=== PATIENT | female | born 1985 | race Caucasian/White ===

== ENCOUNTER 2018-08-04 18:02 | Emergency (ER) | payer MEDICAID, OTHER, SELFPAY ==
[~2018-08-04] VITALS: Ht 157.5 cm; Wt 99.1 kg
[2018-08-04] MEDS ORDERED: KETOROLAC 30 MG/ML VIAL (J1885) IV ONE (19:30)
[2018-08-04] MEDS ORDERED: NS 1,000 ML IV ONE (19:30)
[2018-08-04 19:43] LABS: HEMATOCRIT 34.7 % (36.0-47.0); HEMOGLOBIN 12.7 g/dl (12.0-15.5); MEAN CORPUSCULAR HEMOGLOBIN 31.3 pg (27.0-33.0); MEAN CORPUSCULAR VOLUME 85.5 fl (80.0-96.0); PLATELET COUNT, AUTOMATED 131 10^3/uL (150-450); RED BLOOD COUNT 4.06 10^6/uL (4.00-5.40); WHITE BLOOD COUNT 10.3 10^3/uL (4.0-10.0)
[2018-08-04 19:47] LABS: MEAN CORPUSCULAR HGB CONC 36.4 g/dl (32.0-36.5)
[2018-08-04 20:00] LABS: HEMOGLOBIN A1c 7.1 %
[2018-08-04 20:08] LABS: BLOOD UREA NITROGEN 11 MG/DL (7-18); C REACTIVE PROTEIN QUANTITATIV 5.03 MG/DL (0.00-0.30); CALCIUM LEVEL 7.7 MG/DL (8.5-10.1); CARBON DIOXIDE LEVEL 29 MEQ/L (21-32); CHLORIDE LEVEL 89 MEQ/L (98-107); CREATININE FOR GFR 0.82 MG/DL (0.55-1.30); GLOMERULAR FILTRATION RATE > 60.0 (>60); GLUCOSE, FASTING 174 MG/DL (70-100); SODIUM LEVEL 125 MEQ/L (136-145)
[2018-08-04 20:13] LABS: ATYPICAL LYMPH 7 % (0-5); BASOPHILS 1 % (0-4); LYMPHOCYTES 15 % (16-52); MONOCYTES 1 % (0-8); NEUTROPHILS 76 % (35-75)
[2018-08-04 20:17] LABS: SMUDGE CELLS 1+; TOXIC GRANULATION 2+; TOXIC VACUOLATION 1+
[2018-08-04 20:18] LABS: PLATELET ESTIMATE DECREASED (NORMAL)
[2018-08-04] MEDS ORDERED: ISOVUE-370 76% 100ML VIAL (Q9967) As Ordered ONE (20:46)
--- NOTE | 2018-08-04 21:16 | REP ---
Clinical: Left chest wall abscess. Technique: Axial contrast enhanced images from the thoracic inlet to the upper abdomen with coronal and sagittal re-formations using 100 ml Isovue 370 intravenous contrast material. Findings: There is an irregular predominantly gas containing lesion in the left axillary space which appears to extend to the skin surface and measures approximately 9.0 x 4.5 cm maximal AP and transverse diameter (series 206; images 25-42). Lesion should be correlated with physical examination. No significant drainable fluid is identified and this may be secondary to its apparent extension through the skin surface. Moderate surrounding inflammatory change to the subcutaneous fat noted. The musculature and osseous structures are intact, unaffected and normal. Further evaluation of the chest demonstrates the bilateral lung smith to be well-aerated, symmetric and clear. No consolidation, pleural effusion or pneumothorax. No significant nodule or mass lesion. Tracheobronchial tree is patent. No significant adenopathy. Mediastinum demonstrates normal thoracic aorta, pulmonary vasculature, and heart/pericardium. Impression: 1. Predominate gas-filled abscess in the left axillary space extends through the skin surface and is without drainable fluid. The musculature and osseous structures in the vicinity of the left axillary space as well as the vasculature appear intact, normal and unaffected. 2. No acute mediastinal or pleuroparenchymal process appreciated. Electronically Signed by Eleno Whyte MD 08/04/2018 09:07 P
[2018-08-04] MEDS ORDERED: CLEO300C2 PO (21:41)
[2018-08-04] MEDS ORDERED: METF500T13 PO (21:41)
[2018-08-04] MEDS ORDERED: CLINDAMYCIN 900 MG in APPROPRIATE DILUENT 1 EA IV ONE (21:45)
[2018-08-04 23:43] VITALS: BP 126/71
[2018-08-05] MEDS ORDERED: METF500T13 PO (23:54)
[2018-08-05] MEDS ORDERED: VENTAER INH (23:54)
[2018-08-05] MEDS ORDERED: CLEO300C2 PO (23:54)
[2018-08-05] MEDS ORDERED: IBUPOTC PO (23:54)
== END 2018-08-04 23:51 | disposition left against medical advice (07) ==
LOC: M ED 18:02
DX: L02.412 Cutaneous abscess of left axilla (principal); E11.65 Type 2 diabetes mellitus with hyperglycemia; F17.210 Nicotine dependence, cigarettes, uncomplicated
CPT/HCPCS: 36415; 71260; 80048; 83036; 85025; 86140; 87040; 87070; 87077; 87186; 96361; 96365; 96375; 99284; J1885; Q9967

== ENCOUNTER 2018-08-05 18:32 | Inpatient (IN) | payer MEDICAID, SELFPAY ==
[~2018-08-05] VITALS: Ht 157.5 cm; Wt 99.5 kg
[2018-08-05] MEDS: POTASSIUM CHLORIDE 10 MEQ SR TABLET PO SCH (01:00)
[~2018-08-05 18:32] MED LIST: CLEO300C2 PO; METF500T13 PO
[2018-08-05] MEDS ORDERED: MORPHINE 4 MG/ML 1ML VIAL/SYRINGE (J2270) IV ONE (20:30)
[2018-08-05] MEDS ORDERED: NS 1,000 ML IV ONE ×2 (20:30→22:30)
[2018-08-05 21:41] LABS: HCG, SERUM QUALITATIVE NEGATIVE (NEGATIVE)
[2018-08-05 21:44] LABS: ERYTHROCYTE SEDIMENTATION RATE 70 mm/hr (0-20)
[2018-08-05 21:49] LABS: HEMATOCRIT 30.6 % (36.0-47.0); MEAN CORPUSCULAR HEMOGLOBIN 30.1 pg (27.0-33.0); MEAN CORPUSCULAR HGB CONC 35.9 g/dl (32.0-36.5); MEAN CORPUSCULAR VOLUME 83.6 fl (80.0-96.0); PLATELET COUNT, AUTOMATED 149 10^3/uL (150-450); RED BLOOD COUNT 3.66 10^6/uL (4.00-5.40); WHITE BLOOD COUNT 8.2 10^3/uL (4.0-10.0)
[2018-08-05 21:59] LABS: ALBUMIN 1.9 GM/DL (3.2-5.2); ALT/SGPT 37 U/L (12-78); BILIRUBIN,DIRECT 0.2 MG/DL (0.0-0.2); BILIRUBIN,TOTAL 0.4 MG/DL (0.2-1.0); BLOOD UREA NITROGEN 9 MG/DL (7-18); C REACTIVE PROTEIN QUANTITATIV 4.46 MG/DL (0.00-0.30); CALCIUM LEVEL 7.5 MG/DL (8.5-10.1); CARBON DIOXIDE LEVEL 29 MEQ/L (21-32); CHLORIDE LEVEL 92 MEQ/L (98-107); CREATININE FOR GFR 0.63 MG/DL (0.55-1.30); GLOMERULAR FILTRATION RATE > 60.0 (>60); GLUCOSE, FASTING 158 MG/DL (70-100); POTASSIUM SERUM 2.7 MEQ/L (3.5-5.1); SODIUM LEVEL 129 MEQ/L (136-145); TOTAL PROTEIN 5.6 GM/DL (6.4-8.2)
[2018-08-05 22:14] LABS: ATYPICAL LYMPH 10 % (0-5); BASOPHILS 1 % (0-4); LYMPHOCYTES 26 % (16-52); MONOCYTES 3 % (0-8); NEUTROPHILS 58 % (35-75); TOXIC VACUOLATION 1+
[2018-08-05 22:15] LABS: PLATELET ESTIMATE NORMAL (NORMAL); TOXIC GRANULATION 1+
[2018-08-05] MEDS ORDERED: AMPICILLIN SOD/SULBACTAM SOD 1.5 GM in D5W MINI-BAG PLUS 50 ML IV ONE (22:15)
[2018-08-05] MEDS ORDERED: KCL 20MEQ IN 100ML SWI (KRUN) 20 MEQ in APPROPRIATE DILUENT 1 EA IV ONE ×2 (22:30)
--- NOTE | 2018-08-05 22:35 | REPVR ---
EXAM: US Left Non-Vascular Joint or Other Extremity Structure, Limited Upper Extremity EXAM DATE/TIME: 08/05/2018 10:00 PM CLINICAL HISTORY: 32 years old, female; Signs and symptoms; Swelling and other: Pain, drainage; Arm, upper; Left; Additional info: L axilla, abscess TECHNIQUE: Left US Non-Vascular Joint or Other Extremity Structure. Limited exam of the upper extremity. COMPARISON: No relevant prior studies available. FINDINGS: Limited evaluation of the left axilla demonstrates complex area with small collection measuring 1.6 x 1.0 x 2.3 cm likely an abscess formation with surrounding edema. Findings are consistent with patient's given history of an abscess formation. IMPRESSION: Limited evaluation of the left axilla demonstrates complex area with small collection measuring 1.6 x 1.0 x 2.3 cm likely an abscess formation with surrounding edema. Findings are consistent with patient's given history of an abscess formation. Electronically signed by: Denita Rivera On 08/05/2018 22:35:21 PM
[2018-08-05] MEDS ORDERED: KCL 10MEQ/100ML SWI (KRUN) 10 MEQ in APPROPRIATE DILUENT 1 EA IV ONE ×4 (22:45)
[2018-08-05] MEDS ORDERED: GLUCOSE 4 GM CHEW TABLET PO PRN (23:45)
[2018-08-05] MEDS: NS 1,000 ML IV SCH (23:45)
[2018-08-05] MEDS ORDERED: ONDANSETRON 4MG/2ML VIAL (J2405) IV PRN (23:45)
[2018-08-05] MEDS ORDERED: DEXTROSE 50% 50 ML SYRINGE IV PRN (23:45)
[2018-08-05] MEDS ORDERED: GLUCAGON FOR INJ 1 MG VIAL (J1610) SC PRN (23:45)
[2018-08-05] MEDS ORDERED: METF500T13 PO (23:54)
[2018-08-05] MEDS ORDERED: VENTAER INH (23:54)
[2018-08-05] MEDS ORDERED: CLEO300C2 PO (23:54)
[2018-08-05] MEDS ORDERED: IBUPOTC PO (23:54)
[2018-08-06] MEDS ORDERED: VANCOMYCIN HCL 1,000 MG, VIAL MATE ADAPTER 1 EACH in D5W 250 ML IV STA (00:15)
[2018-08-06 00:18] LABS: CHOLESTEROL LEVEL 60 MG/DL (<200); CHOLESTEROL RISK RATIO 6.666 (<5); HDL CHOLESTEROL 9 MG/DL (>40); LDL CHOLESTEROL -19 MG/DL (<100); NON-HDL-C 51 MG/DL; TRIGLYCERIDES LEVEL 352 MG/DL (<150)
[2018-08-06] MEDS: POTASSIUM CHLORIDE 10 MEQ SR TABLET PO SCH ×3 (00:19→01:00)
[2018-08-06] MEDS: IPRATROPIUM 0.5MG/ALBUTEROL 2.5MG INH SOL UD 3ML (DUONEB)(J7620) NEB SCH ×4 (00:21→21:03)
[2018-08-06] MEDS ORDERED: metroNIDAZOLE 500 MG in APPROPRIATE DILUENT 1 EA IV SCH ×2 (02:00→06:00)
[2018-08-06] MEDS: MORPHINE 4 MG/ML 1ML VIAL/SYRINGE (J2270) IV PRN (02:16)
--- NOTE | 2018-08-06 02:48 | PHACANCOPD ---
PHARMACY VANCOMYCIN DOSING Pt Demographics Demographics Patient Age:32 , Weight:99.550 , Gender: female Adjusted Body Weight Date: 08/06/18, Adjusted Body Weight: Kg Events Past 24 Hours Events Past 24 Hours: NO: Dialysis, Diuretic Therapy, Change in CrCl, Fever, Elevation in WBC, Pending Diagnostics, Pending Procedures, Other Vancomycin Vancomycin Target Ranges: 15-20 mcg/ml Vancomycin Load Y/N: Yes Load Dose Date Time Vancomycin Load Dose: 2000MG Date: 08-06 Time: 040 Vancomycin Dose Date: 08/06/18. Current Vancomycin Dose: [1000mg q8h] Intermittent Dosing?: No Labs Labs Item Value Date Time White Blood Count 8.2 10^3/uL 08/05/182052 Glomerular Filtration Rate > 60.0 08/05/182052 Creatinine 0.63 MG/DL 08/05/182052 Blood Urea Nitrogen 9 MG/DL 08/05/182052 Vital Signs Label Value Date Time Patient Temperature 100.3 degrees F 08/05/182102 Micro Microbiology 08/05/18 Blood Culture, Received Pending 08/05/18 Blood Culture, Received Pending 08/05/18 Gram Stain, Received Pending 08/05/18 Wound Culture, Received Pending Creatinine Clearance Date:08/06/18. Creatinine Clearance: [~100]. Pending Labs Trough 03-02 @1100 Assessment and Plan Maintaining Current Dose?: Yes Reason for dose change: No Dose Change Pharmacist Note Pharmacist Note Date: 08/06/18. Pharmacist note:Will monitor and make adjustments as needed. GAYATRI KAUR PHARMACY Aug 06, 2018 02:48
[2018-08-06] MEDS ORDERED: VANCOMYCIN HCL 1,000 MG, VIAL MATE ADAPTER 1 EACH in D5W 250 ML IV SCH (04:00)
[2018-08-06] MEDS: HEPARIN SOD (PORCINE) 5000 UNITS/ML VIAL SC SCH ×3 (05:47→21:51)
[2018-08-06] MEDS: HumaLOG INSULIN (NovoLOG) PER UNIT SC SCH ×3 (07:30→17:30)
[2018-08-06] MEDS ORDERED: AMPICILLIN SOD/SULBACTAM SOD 3 GM in D5W MINI-BAG PLUS 100 ML IV ONE (07:45)
[2018-08-06 07:52] LABS: INR 1.07
[2018-08-06 07:53] LABS: PARTIAL THROMBOPLASTIN TIME 31.2 SECONDS (25.4-37.6)
[2018-08-06 07:59] LABS: BLOOD UREA NITROGEN 7 MG/DL (7-18); CALCIUM LEVEL 6.9 MG/DL (8.5-10.1); CARBON DIOXIDE LEVEL 28 MEQ/L (21-32); CHLORIDE LEVEL 99 MEQ/L (98-107); GLOMERULAR FILTRATION RATE > 60.0 (>60); GLUCOSE, FASTING 96 MG/DL (70-100); POTASSIUM SERUM 3.3 MEQ/L (3.5-5.1); SODIUM LEVEL 133 MEQ/L (136-145)
[2018-08-06] MEDS ORDERED: cefTRIAXone SOD 1 GM in D5W MINI-BAG PLUS 50 ML IV SCH (08:00)
[2018-08-06 08:21] LABS: C REACTIVE PROTEIN QUANTITATIV 3.76 MG/DL (0.00-0.30); MAGNESIUM LEVEL 2.1 MG/DL (1.8-2.4)
[2018-08-06 08:24] LABS: HEMOGLOBIN 10.3 g/dl (12.0-15.5); MEAN CORPUSCULAR HEMOGLOBIN 30.4 pg (27.0-33.0); MEAN CORPUSCULAR VOLUME 88.5 fl (80.0-96.0); PLATELET COUNT, AUTOMATED 162 10^3/uL (150-450); RED BLOOD COUNT 3.39 10^6/uL (4.00-5.40); WHITE BLOOD COUNT 7.1 10^3/uL (4.0-10.0)
[2018-08-06 08:26] LABS: MEAN CORPUSCULAR HGB CONC 34.3 g/dl (32.0-36.5)
[2018-08-06] MEDS ORDERED: POTASSIUM CHLORIDE 10 MEQ SR TABLET PO ONE (09:45)
[2018-08-06] MEDS: VANCOMYCIN HCL 1,000 MG, VIAL MATE ADAPTER 1 EACH in D5W 250 ML IV SCH ×3 (10:27→23:59)
[2018-08-06] MEDS: MULTIVITAMINS/MINERALS THERAP 1 TAB PO SCH (10:27)
[2018-08-06] MEDS: THIAMINE 100 MG TAB PO SCH (10:28)
[2018-08-06] MEDS: FOLIC ACID 1 MG TAB PO SCH (10:30)
--- NOTE | 2018-08-06 10:32 | REP ---
Clinical: Abnormal liver function tests. History of left axillary abscess Technique: Rodríguez scale ultrasound using curved array transducer. Findings: The liver is increased echogenicity with poor through transmission suggesting fatty infiltration. No focal hepatic lesion identified. Liver is mildly enlarged measuring 18.1 cm craniocaudal length. The pancreas is incompletely evaluated due to interposed bowel gas but visualized portions appear normal. The gallbladder is normal without gallstones, wall thickening or pericholecystic fluid. No biliary ductal dilatation is appreciated, and the common bile duct measures 4.7 mm diameter. The right kidney is normal in reniform shape without hydronephrosis and measures 13.6 x 6.2 x 5.7 cm. No ascites. Visualized portions of the abdominal aorta normal. Impression: 1. Hepatosteatosis and mild hepatomegaly without focal hepatic lesion. Electronically Signed by Eleno Whyte MD 08/06/2018 10:23 A
[2018-08-06] MEDS: NS 1,000 ML IV SCH ×2 (13:45→20:24)
[2018-08-06] MEDS: AMPICILLIN SOD/SULBACTAM SOD 3 GM in D5W MINI-BAG PLUS 100 ML IV SCH ×2 (13:45→20:24)
[2018-08-06 14:00] VITALS: BP 144/73
--- NOTE | 2018-08-06 15:04 | HPE ---
DATE OF ADMISSION: 08/05/2018 CHIEF COMPLAINT: Pain, swelling, drainage from the left axilla over the past several days. HISTORY OF PRESENT ILLNESS: The patient is a 32-year-old female. She has a significant past medical history of chronic obstructive pulmonary disease (COPD), current tobacco abuse, down to 2-3 cigarettes per day, recently diagnosed with diabetes from an emergency department visit 08/04/2018. Noted some swelling, induration, pain in the left axilla that has progressively worsened over the last several days. Patient presented to the emergency room yesterday which noted she had a 9 cm abscess in the left axillary area 9 x 4.5 cm. Patient was advised for admission. She decided to sign out against medical advise. Three times a day with draining of the abscess. Ultrasound showed limited evaluation. She denies fevers or chills. She denies cough, chest pain, shortness of breath, urinary symptoms. She endorses nausea but no vomiting. PAST MEDICAL HISTORY: See history of present illness. PAST SURGICAL HISTORY: Tubal ligation. ALLERGIES: No known drug allergies. HOME MEDICATIONS: Patient was recently started on metformin which she has not recently started. - albuterol as needed SOCIAL HISTORY: She is a current smoker. Denies alcohol or elicit drug use. FAMILY HISTORY: Noncontributory. REVIEW OF SYSTEMS: 12 point review of system was completed all of which are negative except those listed in the history of present illness. VITAL SIGNS ON ADMISSION: Temperature 98, pulse 137, blood pressure 133/82, sating at 92% on room air. PHYSICAL EXAMINATION: General: Well nourished, in no apparent distress. Head is normocephalic, atraumatic. Eyes: Extraocular movements are intact. Pupils equal, round, and reactive to light. Neck is supple. No jugular venous pulse. Lungs: Mild wheezing. No crackles. Cardiovascular: Regular rate and rhythm. Normal S1, S2. No murmurs, gallops or rubs. Abdomen is soft, nontender, nondistended. Positive bowel sounds. No rebound or guarding. Extremities: No pitting edema or calf tenderness. Skin shows induration, draining abscess in the left axilla with mild area of erythema, foul smelling. LABS AND IMAGING DONE IN THE ER: White count of 8, hemoglobin and hematocrit of 11/30, platelet count of 149. Chemistry shows a sodium of 129, chloride of 92, potassium of 2.7, lactate of 2.3. Ultrasound of the left extremity shows limited 1.6 x 1 x 2.3 cm abscess with surrounding edema. ASSESSMENT AND PLAN: Sepsis secondary to axillary abscess which is draining on its own. Will repeat CT in the a.m. to assess for the dimensions. Will do vancomycin, ceftriaxone and Flagyl. Blood cultures, wound cultures in the emergency department. Tylenol as needed. Morphine as needed pain. IV fluids. Will trend lactose until it normalizes. Hypokalemia likely secondary to decreased intake. Will replenish. Will keep her on telemetry. Will recheck potassium in the a.m. Chronic obstructive pulmonary disease (COPD) with mild exacerbation on DuoNeb standing. Recently diagnosed diabetes. A1c of 7.1. Insulin sliding scale. Supportive deep venous thrombosis (DVT) prophylaxis. Heparin subcutaneous. Gastroesophageal (GI) prophylaxis not indicated. Thrombocytopenia unclear etiology. The patient denies any history of alcohol abuse. She does have an albumin of 1.9. AST and ALT are within normal limits as are total bilirubin and alkaline phosphatase. However with a low albumin, we will get a coagulation value for synthetic function of the liver. Will send lipid panel as well. Patient may have a HUSSEIN. Will get an ultrasound of the right upper quadrant to assess for liver parenchyma. Supportive deep venous thrombosis (DVT) prophylaxis. Heparin subcutaneous. Gastroesophageal (GI) prophylaxis not indicated. DIET: Cardiac, diabetic.
--- NOTE | 2018-08-06 15:20 | CR ---
DATE OF CONSULTATION: 08/06/2018 REASON FOR CONSULTATION: Left axillary abscess. HISTORY OF PRESENT ILLNESS: The patient is 32-year-old female, who presents with an abscess on her left axilla she has had for about 2 weeks. She has had previous abscesses under the left that were very small like little pimples she has taken care of by yourself with just warm compresses but never had any large abscesses like this in the past. She was hoping that this one would go away like the others did, so she has been keeping it clean, using a handheld shower head to keep the left axilla washed. She has been keeping it covered with dressings and putting bacitracin on I. She has not had any other drainage procedures or antibiotics used for it. It has been getting progressively worse, continuing to drain the entire time, so she finally came into the emergency room (ER) for evaluation. In the ER, she had no fevers, normal labs, and therefore, she was admitted to the medicine service due to the large abscess that was actively draining and I was asked to evaluate. Currently, she has significant swelling and pain there; however, she denies any other complaints. No fevers or chills. No nausea or vomiting. No problems with any abscesses anywhere else on her body. PAST MEDICAL HISTORY: 1. Diabetes. 2. Asthma. PAST SURGICAL HISTORY: Tubal ligation. ALLERGIES: NONE. HOME MEDICATIONS: - metformin - albuterol SOCIAL HISTORY: Smokes. Denies any drug or alcohol abuse. FAMILY HISTORY: Noncontributory. REVIEW OF SYSTEMS: Pertinent positives and negatives as stated in the history of present illness (HPI). PHYSICAL EXAMINATION: General: Alert and oriented times three, in no acute distress. Vital signs: Temperature 99.9, pulse 99, respirations 20, blood pressure 120/69, pulse oximetry 94% on 2 liters nasal cannula. HEENT: Pupils equally round and react to light and accommodation. Heart: S1, S2, regular rate and rhythm. Lungs: Clear to auscultation bilaterally. Abdomen: Soft, nontender, nondistended. Skin: Under the left axilla there is significant inflammation and swelling. No signs of any palpable fluctuance or fluid collections. There is two 1-1.5 cm openings in the posterior left axilla. They are actively draining very foul-smelling, brownish purulent fluid. No other signs of any abscess or fluid collections. LABS: White count 7.1. Hemoglobin 10.3. Platelets 162. Potassium 3.3. Creatinine 0.5. Lactic acid 1.7. IMAGING: Ultrasound of the left axilla shows complex area a small collection measuring 1.6 x 1 x 2.3 cm likely an abscess formation with surrounding edema. ASSESSMENT AND PLAN: The patient is a 32-year-old female with left axillary abscess that is actively draining on its own. Recommend keeping it clean. Right now she has got pus all over her. The entire left side of her body is covered and draining pus. I recommend a good shower with a handheld shower head to get the area as clean as possible. If the nurses can flush the inside of the wound a little bit with some saline even to try to help expel some of the fluid that is actively draining and then she needs a good absorbent gauze dressing placed on their. If she continues to drain copious amounts of fluid, then she will need multiple dressing changes a day. Otherwise, the antibiotics will likely help to take care the rest of this. Otherwise, at this point, there are no signs of any need for surgical intervention just recommend good close wound care with antibiotics and I will continue to follow as needed.
[2018-08-06 18:00] VITALS: BP 125/64
[2018-08-06] MEDS: ACETAMINOPHEN TAB 650MG DOSE (2X325MG) PO PRN (18:01)
--- NOTE | 2018-08-06 19:37 | IPN ---
DATE: 08/06/2018 Patient admitted overnight with worsening drainage from left axilla abscess and wound. Denies any fever or chills, chest pain, pressure or discomfort. Denies any chest pain, pressure or discomfort. Reported foul smelling drainage from patient's left axilla and significant pain with movement. VITAL SIGNS: Temperature 99.9, pulse 105, respirations 20, blood pressure 105/62, pulse ox 97% on 2 liters. LABORATORY: WBC 7.1, hemoglobin and hematocrit 10.3/30, platelets 162. Chemistry: Sodium 133, potassium 3.3, chloride 99, bicarbonate 28, BUN 7, creatinine 0.5, lactic acid initially 2.3, currently 1.7. PHYSICAL EXAMINATION: GENERAL: Patient obese. Alert. In no acute distress. HEENT: Normocephalic, atraumatic. PULMONARY: Bilateral clear. CARDIAC: Regular S1, S2. ABDOMEN: Soft, nontender, positive bowel sounds. EXTREMITIES: No edema bilateral lower extremities. Right axilla showing two draining abscesses, tender to palpation within purulent foul smelling drainage. ASSESSMENT AND PLAN: This is a 32-year-old female patient with underlying medical history of chronic obstructive pulmonary disease (COPD), tobacco abuse, down to 2 to 3 cigarettes recently diagnosed with diabetes, poorly compliant. Initially noted with left axilla induration that has progressively worsened. Patient was seen in the emergency room yesterday, noted to have a 9 cm abscess, was advised for admission, but patient left against medical advice. Patient returned with purulent drainage from left axilla abscess. PROBLEMS: 1. Sepsis secondary to axilla abscess that is draining. Surgery on consult. Patient currently on Unasyn and vancomycin. Followup cultures. Surgery consulted. Wound care is ordered. IV fluids have been ordered. 2. Obesity complicating care. Obstructive sleep apnea (DAVID) protocol. 3. Sinus tachycardia. Likely secondary to underlying infection and sepsis. IV fluids. 4. Diabetes. Newly diagnosed. Insulin is ordered. 5. Hypokalemia. Likely secondary to poor by mouth intake. Supplementation ordered. 6. History of COPD. Nebulizer treatment. Currently does not have any wheeze. 7. Deep venous thrombosis (DVT) prophylaxis. Heparin subcutaneous. DISPOSITION: Pending clinical improvement.
[2018-08-06 22:00] VITALS: BP 123/62
[2018-08-07] MEDS: IPRATROPIUM 0.5MG/ALBUTEROL 2.5MG INH SOL UD 3ML (DUONEB)(J7620) NEB SCH ×4 (01:38→20:00)
[2018-08-07] MEDS: AMPICILLIN SOD/SULBACTAM SOD 3 GM in D5W MINI-BAG PLUS 100 ML IV SCH ×2 (02:06→09:44)
[2018-08-07] MEDS: HEPARIN SOD (PORCINE) 5000 UNITS/ML VIAL SC SCH ×3 (05:37→20:14)
[2018-08-07 06:00] VITALS: BP 126/76
[2018-08-07 07:57] LABS: HEMATOCRIT 29.7 % (36.0-47.0); HEMOGLOBIN 10.8 g/dl (12.0-15.5); MEAN CORPUSCULAR HEMOGLOBIN 33.8 pg (27.0-33.0); MEAN CORPUSCULAR HGB CONC 36.4 g/dl (32.0-36.5); MEAN CORPUSCULAR VOLUME 92.8 fl (80.0-96.0); PLATELET COUNT, AUTOMATED 178 10^3/uL (150-450); WHITE BLOOD COUNT 6.7 10^3/uL (4.0-10.0)
[2018-08-07 08:29] LABS: BLOOD UREA NITROGEN 5 MG/DL (7-18); C REACTIVE PROTEIN QUANTITATIV 4.04 MG/DL (0.00-0.30); CALCIUM LEVEL 7.3 MG/DL (8.5-10.1); CARBON DIOXIDE LEVEL 28 MEQ/L (21-32); CHLORIDE LEVEL 99 MEQ/L (98-107); CREATININE FOR GFR 0.42 MG/DL (0.55-1.30); GLOMERULAR FILTRATION RATE > 60.0 (>60); GLUCOSE, FASTING 108 MG/DL (70-100); MAGNESIUM LEVEL 1.7 MG/DL (1.8-2.4); POTASSIUM SERUM 3.3 MEQ/L (3.5-5.1); SODIUM LEVEL 134 MEQ/L (136-145)
[2018-08-07] MEDS: HumaLOG INSULIN (NovoLOG) PER UNIT SC SCH ×3 (09:43→17:48)
[2018-08-07] MEDS: FOLIC ACID 1 MG TAB PO SCH (09:50)
[2018-08-07] MEDS: MULTIVITAMINS/MINERALS THERAP 1 TAB PO SCH (09:50)
[2018-08-07] MEDS: THIAMINE 100 MG TAB PO SCH (09:51)
[2018-08-07] MEDS ORDERED: VANCOMYCIN HCL 1,000 MG, VIAL MATE ADAPTER 1 EACH in D5W 250 ML IV ONE (10:00)
--- NOTE | 2018-08-07 10:12 | ECGEPIP ---
Stationary ECG Study [facility] - ED Test Date: 2018-08-05 Pat Name: PATRICE BECERRIL Department: Room: [place] [address] Gender: F Scan Coordinator: taylor : 1985 Requested By: TJ Rutherford PA-C Order Number: [id number] Reading MD: Carmen Wilson Measurements Intervals [place] Rate: 116 P: 59 HI: 156 QRS: 20 QRSD: 102 T: 35 QT: 341 QTc: 476 Interpretive Statements SINUS TACHYCARDIA NONSPECIFIC T-WAVE ABNORMALITY ABNORMAL RHYTHM ECG LOW VOLTAGE LIMB LEADS PROLONGED QTC NO OLD ECG FOR COMPARISON Electronically Signed On 08-07-2018 10:11:40 EST by Carmen Wilson
[2018-08-07] MEDS: VANCOMYCIN HCL 1,000 MG, VIAL MATE ADAPTER 1 EACH in D5W 250 ML IV SCH ×2 (10:52→16:54)
[2018-08-07] MEDS: POTASSIUM CHLORIDE 10 MEQ SR TABLET PO SCH ×2 (10:53→20:14)
[2018-08-07] MEDS ORDERED: MAG SULF 1GM/100ML (MAG RUN) 1 GM in APPROPRIATE DILUENT 1 EA IV ONE (11:00)
[2018-08-07] MEDS: MORPHINE 4 MG/ML 1ML VIAL/SYRINGE (J2270) IV PRN ×2 (12:07→21:46)
[2018-08-07 14:00] VITALS: BP 127/74
[2018-08-07] MEDS: cefTRIAXone SOD 2 GM in D5W MINI-BAG PLUS 50 ML IV SCH (15:59)
--- NOTE | 2018-08-07 17:48 | ECGEPIP ---
Stationary ECG Study [facility] - ED Test Date: 2018-08-06 Pat Name: PATRICE BECERRIL Department: Room: [place] [address] Gender: F Shipping And Receiving Operator: NADIRA : 1985 Requested By: MAINE MARIEE Order Number: [id number] Reading MD: Carmen Wilson Measurements Intervals [place] Rate: 106 P: 42 DE: 161 QRS: 8 QRSD: 92 T: 14 QT: 296 QTc: 393 Interpretive Statements SINUS TACHYCARDIA LOW QRS VOLTAGE IN PRECORDIAL LEADS INCOMPLETE RIGHT BUNDLE BRANCH BLOCK ANTEROSEPTAL MYOCARDIAL INFARCTION, OF INDETERMINATE AGE DELAYED R WAVE PROGRESSION CW 08/05/18 RATE INCREASED NEW LOW QRS VOLTAGE NONSPECIFIC ST T WAVE CHANGES Electronically Signed On 08-07-2018 17:48:09 EST by Carmen Wilson
--- NOTE | 2018-08-07 19:14 | IPNPDOC ---
Text Note Date of Service The patient was seen on 08/07/18. NOTE left axila purulent drainage persisted. denied fever, chill chest pain, sob PHYSICAL EXAMINATION: GENERAL: Patient obese. Alert. In no acute distress. HEENT: Normocephalic, atraumatic. PULMONARY: Bilateral clear. CARDIAC: Regular S1, S2. ABDOMEN: Soft, nontender, positive bowel sounds. EXTREMITIES: No edema bilateral lower extremities. Right axilla showing two draining abscesses, tender to palpation within purulent foul smelling drainage. ASSESSMENT AND PLAN: This is a 32-year-old female patient with underlying medical history of chronic obstructive pulmonary disease (COPD), tobacco abuse, down to 2 to 3 cigarettes recently diagnosed with diabetes, poorly compliant. Initially noted with left axilla induration that has progressively worsened. Patient was seen in the emergency room yesterday, noted to have a 9 cm abscess, was advised for admission, but patient left against medical advice. Patient returned with purulent drainage from left axilla abscess. PROBLEMS: 1. Sepsis secondary to axilla abscess that is draining. Surgery on consult. Patient currently on rocephin and vancomycin. prelim culture showed e coli. Followup cultures. Surgery consulted. Wound care is ordered. IV fluids have been ordered. 2. Obesity complicating care. Obstructive sleep apnea (DAVID) protocol. 3. Sinus tachycardia. Likely secondary to underlying infection and sepsis vs obesity. IV fluids. 4. Diabetes. Newly diagnosed. Insulin is ordered. 5. Hypokalemia. Likely secondary to poor PO intake. Supplementation ordered. 6. History of COPD. Nebulizer treatment. Currently does not have any wheeze. 7. Deep venous thrombosis (DVT) prophylaxis. Heparin subcutaneous. DISPOSITION: Pending clinical improvement. need PMD, consider outpatient sleep study VS,Natali, I+O VS, Natali, I+O Laboratory Tests 08/07/18 07:19 Red Blood Count 3.20 L, Mean Corpuscular Volume 92.8, Mean Corpuscular Hemoglobin 33.8 H, Mean Corpuscular Hemoglobin Concent 36.4, Red Cell Distribution Width 13.4, Calcium Level 7.3 L Vital Signs Date Time Temp Pulse Resp B/P (MAP) Pulse Ox O2 Delivery O2 Flow Rate FiO2 08/07/18 14:00 97.3 111 20 127/74 (91) 95 2.0 08/06/18 09:17 Nasal Cannula I&O- Last 24 Hours up to 6 AM 08/07/18 06:00 Intake Total 1270 ml Balance 1270 ml MAINE MARIEE MD Aug 07, 2018 19:14
[2018-08-07 22:00] VITALS: BP 120/64
[2018-08-07] MEDS: ACETAMINOPHEN TAB 650MG DOSE (2X325MG) PO PRN (22:18)
[2018-08-08] MEDS: VANCOMYCIN HCL 1,000 MG, VIAL MATE ADAPTER 1 EACH in D5W 250 ML IV SCH ×4 (00:08→23:52)
[2018-08-08] MEDS: IPRATROPIUM 0.5MG/ALBUTEROL 2.5MG INH SOL UD 3ML (DUONEB)(J7620) NEB SCH ×4 (00:12→19:27)
[2018-08-08] MEDS: HEPARIN SOD (PORCINE) 5000 UNITS/ML VIAL SC SCH ×4 (05:12→21:50)
[2018-08-08 06:00] VITALS: BP 103/59
[2018-08-08 07:29] LABS: BLOOD UREA NITROGEN 7 MG/DL (7-18); CALCIUM LEVEL 7.5 MG/DL (8.5-10.1); CARBON DIOXIDE LEVEL 29 MEQ/L (21-32); CHLORIDE LEVEL 101 MEQ/L (98-107); CREATININE FOR GFR 0.51 MG/DL (0.55-1.30); GLOMERULAR FILTRATION RATE > 60.0 (>60); GLUCOSE, FASTING 160 MG/DL (70-100); MAGNESIUM LEVEL 1.7 MG/DL (1.8-2.4); POTASSIUM SERUM 3.4 MEQ/L (3.5-5.1); SODIUM LEVEL 136 MEQ/L (136-145)
[2018-08-08 07:31] LABS: HEMATOCRIT 32.7 % (36.0-47.0); HEMOGLOBIN 11.1 g/dl (12.0-15.5); MEAN CORPUSCULAR HEMOGLOBIN 30.6 pg (27.0-33.0); MEAN CORPUSCULAR HGB CONC 33.9 g/dl (32.0-36.5); MEAN CORPUSCULAR VOLUME 90.1 fl (80.0-96.0); PLATELET COUNT, AUTOMATED 173 10^3/uL (150-450); RED BLOOD COUNT 3.63 10^6/uL (4.00-5.40); WHITE BLOOD COUNT 5.4 10^3/uL (4.0-10.0)
[2018-08-08] MEDS: HumaLOG INSULIN (NovoLOG) PER UNIT SC SCH ×3 (07:56→18:09)
[2018-08-08] MEDS: MULTIVITAMINS/MINERALS THERAP 1 TAB PO SCH (07:58)
[2018-08-08] MEDS: MORPHINE 4 MG/ML 1ML VIAL/SYRINGE (J2270) IV PRN ×2 (07:58→22:19)
[2018-08-08] MEDS: THIAMINE 100 MG TAB PO SCH (07:58)
[2018-08-08] MEDS: POTASSIUM CHLORIDE 10 MEQ SR TABLET PO SCH ×2 (07:58→20:24)
[2018-08-08] MEDS: FOLIC ACID 1 MG TAB PO SCH (07:58)
[2018-08-08] MEDS ORDERED: MAG SULF 1GM/100ML (MAG RUN) 1 GM in APPROPRIATE DILUENT 1 EA IV ONE (08:00)
[2018-08-08 11:44] LABS: AMORPHOUS SEDIMENT SMALL (NEGATIVE); APPEARANCE, URINE CLOUDY (CLEAR); BACTERIA, URINE AUTO 1+ (NEGATIVE); BILIRUBIN, URINE AUTO NEGATIVE (NEGATIVE); BLOOD, URINE BLOOD 1+ (NEGATIVE); COLOR, URINE YELLOW (YELLOW); GLUCOSE, URINE (UA) AUTO 2+ mg/dL (NEGATIVE); KETONE, URINE AUTO NEGATIVE (NEGATIVE); LEUKOCYTE ESTERASE, URINE AUTO TRACE (NEGATIVE); MUCUS, URINE SMALL (NEGATIVE); NITRITE, URINE AUTO NEGATIVE (NEGATIVE); PROTEIN, URINE AUTO NEGATIVE (NEGATIVE); RBC, URINE AUTO 13 /HPF (0-3); SPECIFIC GRAVITY URINE AUTO 1.019 (1.002-1.035); SQUAMOUS EPITHELIAL CELL UR AU 17 /HPF (0-6); UROBILINOGEN, URINE AUTO 0.2 mg/dL (0.0-2.0); WBC, URINE AUTO 28 /HPF (0-3)
[2018-08-08 12:01] LABS: OSMOLALITY URINE 644 MOSM/KG (500-800)
[2018-08-08 13:01] LABS: CHLORIDE,RANDOM URINE 170 MEQ/L; POTASSIUM RANDOM URINE 37.3 MEQ/L; SODIUM,RANDOM URINE 96 MEQ/L
[2018-08-08 14:00] VITALS: BP 139/70
[2018-08-08] MEDS: cefTRIAXone SOD 2 GM in D5W MINI-BAG PLUS 50 ML IV SCH (14:53)
--- NOTE | 2018-08-08 14:53 | IPNPDOC ---
Text Note Date of Service The patient was seen on 08/08/18. NOTE Left axila purulent drainage improved. denied fever, chill chest pain, sob PHYSICAL EXAMINATION: GENERAL: Patient obese. Alert. In no acute distress. HEENT: Normocephalic, atraumatic. PULMONARY: Bilateral clear. CARDIAC: Regular S1, S2. ABDOMEN: Soft, nontender, positive bowel sounds. EXTREMITIES: No edema bilateral lower extremities. Right axilla showing two draining abscesses, tenderness improved with purulent drainage improved. ASSESSMENT AND PLAN: This is a 32-year-old female patient with underlying medical history of chronic obstructive pulmonary disease (COPD), tobacco abuse, down to 2 to 3 cigarettes recently diagnosed with diabetes, poorly compliant. Initially noted with left axilla induration that has progressively worsened. Patient was seen in the emergency room yesterday, noted to have a 9 cm abscess, was advised for admission, but patient left against medical advice. Patient returned with purulent drainage from left axilla abscess. PROBLEMS: 1. Sepsis secondary to axilla abscess that is draining. Surgery on consult. Patient currently on rocephin and vancomycin. prelim culture showed e coli. Followup cultures. Surgery consulted. Wound care is ordered. IV fluids have been ordered. 2. Obesity complicating care. Obstructive sleep apnea (DAVID) protocol. 3. Sinus tachycardia. Likely secondary to underlying infection and sepsis vs obesity. IV fluids. 4. Diabetes. Newly diagnosed. Insulin is ordered. 5. Hypokalemia. Likely secondary to poor PO intake. Supplementation ordered. workup sent 6. History of COPD. Nebulizer treatment. Currently does not have any wheeze. 7. Deep venous thrombosis (DVT) prophylaxis. Heparin subcutaneous. DISPOSITION: Pending clinical improvement. need PMD, consider outpatient sleep study VS,Natali, I+O VS, Natali, I+O Laboratory Tests 08/08/18 06:43 Red Blood Count 3.63 L, Mean Corpuscular Volume 90.1, Mean Corpuscular Hemoglobin 30.6, Mean Corpuscular Hemoglobin Concent 33.9, Red Cell Distribution Width 13.7, Calcium Level 7.5 L Vital Signs Date Time Temp Pulse Resp B/P (MAP) Pulse Ox O2 Delivery O2 Flow Rate FiO2 08/08/18 11:00 2.0 08/08/18 08:57 20 08/08/18 06:00 96.4 98 103/59 (93) 100 08/06/18 09:17 Nasal Cannula I&O- Last 24 Hours up to 6 AM 08/08/18 06:00 Intake Total 1770 ml Output Total 0 ml Balance 1770 ml MAINE MARIEE MD Aug 08, 2018 14:53
[2018-08-08 22:00] VITALS: BP 116/57
[2018-08-08] MEDS: ACETAMINOPHEN TAB 650MG DOSE (2X325MG) PO PRN (22:46)
[2018-08-09] MEDS: IPRATROPIUM 0.5MG/ALBUTEROL 2.5MG INH SOL UD 3ML (DUONEB)(J7620) NEB SCH ×4 (02:05→20:34)
[2018-08-09] MEDS: HEPARIN SOD (PORCINE) 5000 UNITS/ML VIAL SC SCH ×3 (05:05→21:25)
[2018-08-09 06:00] VITALS: BP 129/81
[2018-08-09 06:04] LABS: HEMOGLOBIN 11.3 g/dl (12.0-15.5); MEAN CORPUSCULAR HEMOGLOBIN 34.1 pg (27.0-33.0); MEAN CORPUSCULAR HGB CONC 36.5 g/dl (32.0-36.5); MEAN CORPUSCULAR VOLUME 93.7 fl (80.0-96.0); PLATELET COUNT, AUTOMATED 178 10^3/uL (150-450); RED BLOOD COUNT 3.31 10^6/uL (4.00-5.40); WHITE BLOOD COUNT 6.5 10^3/uL (4.0-10.0)
[2018-08-09 06:49] LABS: BLOOD UREA NITROGEN 7 MG/DL (7-18); C REACTIVE PROTEIN QUANTITATIV 1.87 MG/DL (0.00-0.30); CALCIUM LEVEL 7.5 MG/DL (8.5-10.1); CARBON DIOXIDE LEVEL 27 MEQ/L (21-32); CHLORIDE LEVEL 105 MEQ/L (98-107); CREATININE FOR GFR 0.45 MG/DL (0.55-1.30); GLOMERULAR FILTRATION RATE > 60.0 (>60); GLUCOSE, FASTING 95 MG/DL (70-100); MAGNESIUM LEVEL 1.7 MG/DL (1.8-2.4); POTASSIUM SERUM 4.2 MEQ/L (3.5-5.1); SODIUM LEVEL 138 MEQ/L (136-145)
[2018-08-09] MEDS: HumaLOG INSULIN (NovoLOG) PER UNIT SC SCH ×3 (07:30→17:54)
[2018-08-09] MEDS: VANCOMYCIN HCL 1,000 MG, VIAL MATE ADAPTER 1 EACH in D5W 250 ML IV SCH (08:44)
[2018-08-09] MEDS: MULTIVITAMINS/MINERALS THERAP 1 TAB PO SCH (08:45)
[2018-08-09] MEDS: FOLIC ACID 1 MG TAB PO SCH (08:46)
[2018-08-09] MEDS: THIAMINE 100 MG TAB PO SCH (08:46)
[2018-08-09] MEDS ORDERED: CEPHALEXIN 500 MG CAP PO SCH (09:00)
[2018-08-09] MEDS ORDERED: MAG SULF 1GM/100ML (MAG RUN) 1 GM in APPROPRIATE DILUENT 1 EA IV ONE (10:00)
--- NOTE | 2018-08-09 10:23 | IPNPDOC ---
Text Note Date of Service The patient was seen on 08/09/18. NOTE Subjective: Patient is a 32-year-old female who presented to the hospital on 08/05/2018 with a chief complaint of an abscess in her left axilla. It had been draining for some time. Patient said it had been there for a few days. She is unsure of how he is progressing because she says she cannot see it. She still says it is painful especially during dressing changes and wound packing and unpacking. Patient was recently diagnosed with diabetes however, she has not started treatment yet. Patient is still on 2 L of oxygen via nasal cannula. Patient says she does not use oxygen at home. She states that she was put on oxygen in the hospital because every time she would get up and walk around the continuous pulse oximetry monitor would alarm because she would become hypoxic. Patient does say when she is out of the hospital she has noticed dyspnea on exertion. She says that when she is climbing up stairs and walking for some distance she does experience episodes of shortness of breath and lightheadedness. Patient also carries a diagnosis of COPD for which she only uses a albuterol rescue inhaler for. Patient says she does notice her legs will swell up from time to time which she attributes to not walking as much. She feels otherwise well today. Review of systems General: Patient denies fevers HEENT: Patient denies headaches Cardiovascular: Patient denies chest pain Respiratory: Patient denies shortness of breath, cough GI: Patient denies abdominal pain, nausea, vomiting, diarrhea : Patient denies pain or difficulty with urination Neurological: Patient denies numbness or tingling in extremities Extremities: Swelling in her legs. Pain in her left axilla from abscess Objective: Vitals: (see below) General: No acute distress, laying comfortably in bed. HEENT: Normocephalic, atraumatic, moist mucous membranes. Neck: No JVD or lymphadenopathy Cardiac: RRR, No murmurs Pulm: Clear to auscultation b/l. No wheezing, rhonchi Abd: NT/ND + BS Ext: 2+ pitting edema to the level of the mid dunbar bilaterally. No cyanosis. Radial, posterior tibial, and dorsalis pedis pulses equal bilaterally. Labs (see below) Images: A chest CT performed on 08/06/2018 is still pending. Assessment/Plan 1. Sepsis secondary to abscess of the left axilla that is draining. Surgery was consulted and said to apply a dressing to keep drainage from soiling clothing. Rocephin and vancomycin have been discontinued. The culture showed Escherichia coli which was sensitive to first generation cephalosporins. We have transition the patient to Keflex 500 mg twice a day by mouth and we will continue to monitor. A CRP will be drawn tomorrow. 2. Hypoxia. Patient does not wear oxygen outpatient however, she has noticed some dyspnea on exertion over the past few weeks. We will continue to monitor. 3. Peripheral edema. This seems fairly new according to but the patient is been saying. She does notice some peripheral edema which she attributes to not walking. Because of the peripheral edema and the patient's hypoxia we will start the patient on 20 mg of Lasix IV a day with first dose coming today. We have also ordered a urgent echocardiogram to assess for heart failure. We will adjust treatment based on the results of the echocardiogram. 4. Obesity complicating care. Patient is on the obstructive sleep apnea protocol. 5. Diabetes. Patient is newly diagnosed and she is on sliding scale insulin. 6. Hypokalemia. Likely secondary to poor by mouth intake. Her potassium is normal today. 7. Hypomagnesemia. A mag run has been ordered for today and will recheck in the morning. 8. History of COPD. Patient is currently on albuterol via nebulizer. She is not wheezing at this time. DVT prophy: Heparin 5000 units subcutaneous every 8 hours is ordered however, the patient has refused. Dispo: Pending echocardiogram and ability to maintain saturations off O2 supplementation. We are also waiting for a friend or family member to come in for teaching for wound care. VS,Natali, I+O VS, Lidiae, I+O Laboratory Tests 08/09/18 05:53 Red Blood Count 3.31 L, Mean Corpuscular Volume 93.7, Mean Corpuscular Hemoglobin 34.1 H, Mean Corpuscular Hemoglobin Concent 36.5, Red Cell Distribution Width 13.8, Calcium Level 7.5 L Vital Signs Date Time Temp Pulse Resp B/P (MAP) Pulse Ox O2 Delivery O2 Flow Rate FiO2 08/09/18 06:00 96.5 106 24 129/81 (97) 99 2.0 08/08/18 21:00 Nasal Cannula I&O- Last 24 Hours up to 6 AM 08/09/18 06:00 Intake Total 1800 ml Output Total 450 ml Balance 1350 ml GME ATTESTATION GME ATTESTATION My faculty preceptor for this patient encounter was physically present during the encounter and was fully available. All aspects of the patient interview, examination, medical decision making process, and medical care plan development were reviewed and approved by the faculty preceptor. The faculty preceptor is aware and concurs with the plan as stated in the body of this note and will attest to such by his/her cosignature. ATTENDING NOTE I have both independently examined this patient as well as reviewed the note I have discussed in detail the findings and plan of treatment as documented in the note. I will continue to follow the patient and offer further guidance to the patients care as necessary during this hospital stay. DAYAN Zazueta MD, DO Aug 09, 2018 10:23 MAINE MARIEE MD Aug 13, 2018 17:30
[2018-08-09] MEDS: FUROSEMIDE 20 MG/2 ML VIAL (J1940) IV SCH (10:38)
[2018-08-09] MEDS: MORPHINE 4 MG/ML 1ML VIAL/SYRINGE (J2270) IV PRN (10:39)
[2018-08-09 14:00] VITALS: BP 125/81
[2018-08-09] MEDS: CEPHALEXIN 500 MG CAP PO SCH ×2 (14:19→21:29)
[2018-08-09 22:00] VITALS: BP 120/60
[2018-08-10] MEDS: IPRATROPIUM 0.5MG/ALBUTEROL 2.5MG INH SOL UD 3ML (DUONEB)(J7620) NEB SCH ×4 (01:41→20:00)
[2018-08-10] MEDS: CEPHALEXIN 500 MG CAP PO SCH ×3 (02:34→14:33)
[2018-08-10] MEDS: MORPHINE 4 MG/ML 1ML VIAL/SYRINGE (J2270) IV PRN (02:35)
[2018-08-10] MEDS: HEPARIN SOD (PORCINE) 5000 UNITS/ML VIAL SC SCH ×3 (03:14→19:37)
[2018-08-10 05:56] LABS: BLOOD UREA NITROGEN 10 MG/DL (7-18); C REACTIVE PROTEIN QUANTITATIV 1.36 MG/DL (0.00-0.30); CALCIUM LEVEL 7.7 MG/DL (8.5-10.1); CARBON DIOXIDE LEVEL 23 MEQ/L (21-32); CHLORIDE LEVEL 105 MEQ/L (98-107); CREATININE FOR GFR 0.44 MG/DL (0.55-1.30); GLOMERULAR FILTRATION RATE > 60.0 (>60); GLUCOSE, FASTING 110 MG/DL (70-100); HEMATOCRIT 33.7 % (36.0-47.0); HEMOGLOBIN 11.1 g/dl (12.0-15.5); MAGNESIUM LEVEL 1.7 MG/DL (1.8-2.4); MEAN CORPUSCULAR HEMOGLOBIN 31.5 pg (27.0-33.0); MEAN CORPUSCULAR VOLUME 95.7 fl (80.0-96.0); PLATELET COUNT, AUTOMATED 116 10^3/uL (150-450); POTASSIUM SERUM 4.5 MEQ/L (3.5-5.1); RED BLOOD COUNT 3.52 10^6/uL (4.00-5.40); SODIUM LEVEL 133 MEQ/L (136-145); WHITE BLOOD COUNT 8.4 10^3/uL (4.0-10.0)
[2018-08-10 06:00] VITALS: BP 150/65
[2018-08-10 06:02] LABS: MEAN CORPUSCULAR HGB CONC 32.9 g/dl (32.0-36.5)
[2018-08-10] MEDS: FOLIC ACID 1 MG TAB PO SCH (08:28)
[2018-08-10] MEDS: THIAMINE 100 MG TAB PO SCH (08:28)
[2018-08-10] MEDS: FUROSEMIDE 20 MG/2 ML VIAL (J1940) IV SCH (08:28)
[2018-08-10] MEDS: HumaLOG INSULIN (NovoLOG) PER UNIT SC SCH ×3 (08:29→18:02)
[2018-08-10] MEDS: MULTIVITAMINS/MINERALS THERAP 1 TAB PO SCH (08:29)
[2018-08-10] MEDS ORDERED: ISOVUE-370 76% 100ML VIAL (Q9967) As Ordered ONE (11:01)
[2018-08-10 11:34] LABS: CK-MB VALUE MASS < 1.0 NG/ML (<3.6); CPK CREATINE PHOSPHOKINASE 34 U/L (26-192); MB/CK RELATIVE INDEX 2.94 (< OR =4); TROPONIN I < 0.02 NG/ML (< 0.10)
--- NOTE | 2018-08-10 12:06 | REP ---
CT ANGIOGRAM OF THE CHEST: TECHNIQUE: Axial contrast enhanced images from the thoracic inlet to the upper abdomen using 100 mL Isovue 370 intravenous contrast material with multiplanar reformations. COMPARISON: CT chest without contrast 08/06/2018. There is no CT evidence of pulmonary embolism. There is no thoracic aortic aneurysm or dissection. There is no significant mediastinal, hilar or chest wall lymphadenopathy. There is no pleural or pericardial effusion. Patchy atelectasis/infiltrate is seen in the right lower lobe. In the left axilla again, there is air in the soft tissues with associated edema and inflammation. No abscess is seen in this region. The visualized upper abdominal structures demonstrate apparent splenomegaly. There appears to be fatty infiltration of the liver. IMPRESSION: Foci of air with edema and inflammation in the left axillary region similar to the prior study of 08/06/2018. No evidence of axillary abscess. Patchy infiltrate/atelectasis right lower lobe. Splenomegaly. Electronically Signed by Ajit Rodríguez MD 08/11/2018 09:08 A
[2018-08-10 14:00] VITALS: BP 121/76
[2018-08-10 15:15] LABS: CK-MB VALUE MASS < 1.0 NG/ML (<3.6); CPK CREATINE PHOSPHOKINASE 26 U/L (26-192); MB/CK RELATIVE INDEX 3.85 (< OR =4); TROPONIN I 0.02 NG/ML (< 0.10)
[2018-08-10 16:21] LABS: ADRENOCORTICOTROPHIC HORMONE 8.1 pg/mL (7.2-63.3)
[2018-08-10] MEDS ORDERED: MAG SULF 1GM/100ML (MAG RUN) 1 GM in APPROPRIATE DILUENT 1 EA IV ONE (17:00)
--- NOTE | 2018-08-10 17:43 | IPNPDOC ---
Text Note Date of Service The patient was seen on 08/10/18. NOTE Subjective: Patient is a 32-year-old female who initially presented to the emergency room on 08/05/2008 with a chief complaint of an abscess in her left axilla. This abscess was draining. Gen. surgery saw the patient and advised that we continue to let the abscess drain. Culture results preliminarily grew out Escherichia coli. Patient had been on ceftriaxone IV. Patient was switched to oral Keflex. Patient was seen to cefdinir 300 mg twice a day by infectious disease. Patient continues to have shortness of breath on exertion. Patient says she's been having shortness of breath on exertion for some time before coming to the hospital. She states that she cannot walk up a full flight of stairs without becoming short of breath and feeling dizzy. She states also that she is not able to walk on flat ground for more than a few minutes without becoming short of breath. Patient does not have a primary care physician and was recently diagnosed with type 2 diabetes in the emergency room. She has not started treatment for this at this time. Patient states that the underarm is feeling better however, it still hurts. Patient says her legs are about the same as they were yesterday. Review of systems General: Patient denies fevers HEENT: Patient denies headaches Cardiovascular: Patient denies chest pain Respiratory: Shortness of breath with exertion as described above GI: Patient denies abdominal pain, nausea, vomiting, diarrhea : Patient denies pain or difficulty with urination Neurological: Patient denies numbness or tingling in extremities Extremities: Patient says her lower legs are swollen Objective: Vitals: (see below) General: No acute distress, laying comfortably in bed. HEENT: Normocephalic, atraumatic, moist mucous membranes. Neck: No JVD or lymphadenopathy Cardiac: RRR, No murmurs Pulm: Bibasilar crackles. Upper lung smith are clear Abd: NT/ND + BS Ext: 2+ pitting edema to the level of the mid dunbar bilaterally.. Radial, posterior tibial, and dorsalis pedis pulses equal bilaterally. Labs (see below) Images: A CT angiogram of the chest performed on 08/10/[address] evidence of pulmonary embolism. There is a foci of air and edema with infla mmation of the left axillary region which is similar to her prior study on 08/06/2018. There is some patchy infiltrates/atelectasis in the right lower lobe. Study also noted splenomegaly. Assessment/Plan 1. Sepsis secondary to abscess of the left axilla that is draining. Surgery was consulted and instructed to apply a dressing to keep the drainage from soiling clothing. Infectious disease has been consulted. We appreciate their help in treating the patient. Patient has been switched to oral cefdinir 300 mg twice a day. The Keflex 500 mg 4 times a day has been discontinued. Patient has been co nsistently tachycardic and had a lactic acid of 2.3 upon admission. This has since resolved. Patient is still tachycardic. 2. Hypoxia. Patient does not wear oxygen outpatient however, she has noticed dyspnea on exertion for the past few weeks. Her pulse ox in the hospital as range from the mid to upper 80s to the mid 90s. When she is not on oxygen and resting her O2 saturations are low 90s. When she gets up and walk around, these drop into the 80s. She's been on 2 L of oxygen via nasal cannula consistently. CT angiogram of the chest did not show any evidence of pulmonary embolus. 3. Persistent sinus tachycardia. Cardiology has been consulted. Patient's clinically appears to be in congestive heart failure due to bibasilar crackles being her in the lungs and the patient's 2+ pitting edema in the lower extremities. An echocardiogram is still pending. 4. Obesity complicating care. Patient is on this obstructive sleep apnea protocol. 5. Diabetes. Patient is newly diagnosed and she is currently on sliding scale insulin. 6. Hypokalemia. This is likely secondary to poor oral intake. Her potassium has normalized. 7. Hypomagnesemia. Patient's magnesium level is 1.7 this morning. We have orde red repletion. 8. History of COPD. Patient is currently on albuterol via nebulizer. She is not wheezing at this time. DVT prophy: Heparin 5000 units subcutaneous every 8 hours. Patient had been refusing the shots up until this afternoon. Dispo: Pending clinical improvement VS,Fishbone, I+O VS, Fishbone, I+O Laboratory Tests 08/10/18 05:25 Red Blood Count 3.52 L, Mean Corpuscular Volume 95.7, Mean Corpuscular Hemoglobin 31.5, Mean Corpuscular Hemoglobin Concent 32.9, Red Cell Distribution Width 14.5, Calcium Level 7.7 L Vital Signs Date Time Temp Pulse Resp B/P (MAP) Pulse Ox O2 Delivery O2 Flow Rate FiO2 08/10/18 14:00 96.9 130 24 121/76 (91) 91 2.0 08/09/18 20:35 Nasal Cannula I&O- Last 24 Hours up to 6 AM 08/10/18 06:00 Intake Total 1320 ml Output Total 1675 ml Balance -355 ml GME ATTESTATION GME ATTESTATION My faculty preceptor for this patient encounter was physically present during the encounter and was fully available. All aspects of the patient interview, examination, medical decision making process, and medical care plan development were reviewed and approved by the faculty preceptor. The faculty preceptor is aware and concurs with the plan as stated in the body of this note and will attest to such by his/her cosignature. DAYAN KELLEY DO Aug 10, 2018 17:43
[2018-08-10] MEDS: CEFDINIR 300 MG CAP (OMNICEF) PO SCH (19:37)
[2018-08-10] MEDS: ACETAMINOPHEN TAB 650MG DOSE (2X325MG) PO PRN (19:39)
[2018-08-10 22:00] VITALS: BP 105/54
[2018-08-11] MEDS: IPRATROPIUM 0.5MG/ALBUTEROL 2.5MG INH SOL UD 3ML (DUONEB)(J7620) NEB SCH ×5 (01:49→23:26)
[2018-08-11] MEDS: HEPARIN SOD (PORCINE) 5000 UNITS/ML VIAL SC SCH ×3 (05:00→20:25)
[2018-08-11 06:00] VITALS: BP 125/57
[2018-08-11 06:54] LABS: HEMATOCRIT 30.8 % (36.0-47.0); HEMOGLOBIN 10.5 g/dl (12.0-15.5); MEAN CORPUSCULAR HEMOGLOBIN 31.1 pg (27.0-33.0); MEAN CORPUSCULAR HGB CONC 34.1 g/dl (32.0-36.5); MEAN CORPUSCULAR VOLUME 91.1 fl (80.0-96.0); PLATELET COUNT, AUTOMATED 229 10^3/uL (150-450); RED BLOOD COUNT 3.38 10^6/uL (4.00-5.40); WHITE BLOOD COUNT 7.1 10^3/uL (4.0-10.0)
[2018-08-11 06:58] LABS: BLOOD UREA NITROGEN 8 MG/DL (7-18); C REACTIVE PROTEIN QUANTITATIV 1.37 MG/DL (0.00-0.30); CALCIUM LEVEL 7.6 MG/DL (8.5-10.1); CARBON DIOXIDE LEVEL 28 MEQ/L (21-32); CHLORIDE LEVEL 104 MEQ/L (98-107); CREATININE FOR GFR 0.37 MG/DL (0.55-1.30); GLOMERULAR FILTRATION RATE > 60.0 (>60); GLUCOSE, FASTING 129 MG/DL (70-100); MAGNESIUM LEVEL 1.7 MG/DL (1.8-2.4); SODIUM LEVEL 138 MEQ/L (136-145)
--- NOTE | 2018-08-11 07:53 | ECGEPIP ---
Stationary ECG Study [facility] Test Date: 2018-08-10 Pat Name: PATRICE BECERRIL Department: Room: [place] [address] Gender: F Federal Aid Coordinator: NADIRA : 1985 Requested By: MARISA REDD Order Number: [id number] Reading MD: Matias Gu Measurements Intervals Lissie Rate: 119 P: 39 AL: 158 QRS: 21 QRSD: 94 T: 36 QT: 339 QTc: 477 Interpretive Statements SINUS TACHYCARDIA Low QRS complex voltage in the precordial leads Possible Left atrial enlargement Rate increased from tracing done 08-06-18 Electronically Signed On 08-11-2018 7:53:30 EST by Matias Gu
[2018-08-11] MEDS: HumaLOG INSULIN (NovoLOG) PER UNIT SC SCH ×3 (08:48→17:30)
[2018-08-11] MEDS: FOLIC ACID 1 MG TAB PO SCH (08:48)
[2018-08-11] MEDS: MULTIVITAMINS/MINERALS THERAP 1 TAB PO SCH (08:49)
[2018-08-11] MEDS: THIAMINE 100 MG TAB PO SCH (08:49)
[2018-08-11] MEDS: FUROSEMIDE 20 MG/2 ML VIAL (J1940) IV SCH (08:49)
[2018-08-11] MEDS: CEFDINIR 300 MG CAP (OMNICEF) PO SCH ×2 (08:49→20:25)
--- NOTE | 2018-08-11 09:37 | CR ---
DATE OF CONSULTATION: 08/11/2018 REFERRING PHYSICIAN: Dr. Jimenez and Dr. Hutson INDICATION: Tachycardia. HISTORY OF PRESENT ILLNESS Mrs. Tse is unknown to me previously. She is a 32-year-old female who was admitted to [facility] with left axillary abscess that has been draining purulent discharge. During her stay she has been noted to be quite tachycardic, it is a sinus tachycardia with heart rate during awake hours between 100 and 120 beats per minute with activity going into 150s. During nighttime, the review of telemetry tracing indicates that her heart rate slows down into 80s and 90s. No other arrhythmias were documented. The patient does not have any sensation of palpitation or chest pain. She does admit that she gets short of breath with activity which has been the case for quite some time. She was labeled as having COPD and has been using albuterol on an outpatient basis. PAST MEDICAL HISTORY: 1. Chronic obstructive pulmonary disease (COPD), very likely incorrect diagnosis. 2. Morbid obesity. 3. Recently diagnosed type 2 diabetes. PAST SURGICAL HISTORY: Tubal ligation. ALLERGIES: No known drug allergies. HOME MEDICATIONS: Just metformin and albuterol. FAMILY HISTORY: Her mother is diabetic but does not have any coronary artery disease that the patient knows of. Her father to the best of her understanding is relatively healthy but they are not very close. SOCIAL HISTORY: The patient is in the process of getting . She is a mother of three children and stays at home. She has been smoking since the age of [age]. She reports that she has been drinking quite a bit of beer, typically three to four 24 ounce cans a day. REVIEW OF SYSTEMS: She denies any chest pain, palpitations, dizziness, syncope and near syncope, paroxysmal nocturnal dyspnea (PND), orthopnea. She does get short of breath with relatively mild activity. Overall probably [place] Heart [employer] class III dyspnea. No peripheral edema. PHYSICAL EXAMINATION: On physical examination she is a young woman who appears probably older than her calendar age, alert and oriented and appropriate. Somewhat superficial in her answers. Vital signs: Blood pressure 125/57, heart rate has been documented between 100 and 130 sinus tachycardia. She is afebrile. Saturation is 97% liters of oxygen. Her weight was documented as 100 kg for a body mass index of 40. Her JVP is not elevated. I do not appreciate any carotid bruit. Lungs are reasonably clear to auscultation without any wheezing, crackles or rhonchi. Heart exam is quite limited by her large size. I would do not appreciate precordial impulse. I do not appreciate gallop, rub or murmur. Abdomen is obese but soft and nontender. I am unable to estimate size of liver and spleen. No guarding. Extremities are free of edema. Peripheral pulses are palpable. Neurologically she is intact. She has scarring after acne on her back. Laboratory mcamhan, CBC hemoglobin 10.5, hematocrit 30.8, WBC count 7.1. Basic metabolic panel is normal but for a glucose of 129, magnesium 1.7. She had two cardiac enzymes that were negative. CRP is 1.3. I do not see that her N terminal proBNP would have been drawn. An echocardiogram was performed the day before yesterday but it has not been interpreted as yet. Her electrocardiogram reveals presence of sinus tachycardia with borderline low voltage in precordial leads and incomplete right bundle branch block. ASSESSMENT/PLAN: Mrs. Tse is a 32-year-old morbidly obese diabetic female who has been smoking since the age of 7 and who drinks fairly high amount of beer at home virtually every day. She has sinus tachycardia which probably is a combination of factors. One is anemia, and the second his current infection, and next is morbid obesity. I think it is important to obtain an echocardiogram to make sure she does not have cardiomyopathy, but by physical examination I do not expect that diagnosis. I do not think that the presentation is typical for congestive heart failure. I also would consider the possibility of pericardial effusion in the differential diagnosis, but I think that it is likely that her low voltage is just a consequence of obesity rather than anything else. I certainly do not see any signs of hemodynamically significant pericardial effusion. Provided the echocardiogram does not reveal gross abnormalities, I would not recommend any further evaluation or treatment in this regard. I will tentatively see her on an outpatient basis in a few weeks. In the long run, I think she needs to focus on healthy habits. She definitely should quit smoking and she also needs to focus on her nutrition. We had a discussion on this topic and I am afraid to say that I am not overly optimistic that she will be able to make changes appropriate to her situation.
[2018-08-11] MEDS ORDERED: MAG SULF 1GM/100ML (MAG RUN) 1 GM in APPROPRIATE DILUENT 1 EA IV ONE (11:00)
[2018-08-11 14:00] VITALS: BP 137/87
--- NOTE | 2018-08-11 16:22 | IPNPDOC ---
Text Note Date of Service The patient was seen on 08/11/18. NOTE Subjective: Patient is a 32-year-old female who initially presented to the [facility] on 08/05/2017 with a chief complaint of left axillary abscess. The abscess has gotten better and she is in less pain. Patient's biggest complaint today is the fact that she still is requiring supplemental oxygen therapy. Patient does carry a diagnosis of COPD. Patient says that she has dyspnea on exertion although this has gotten better. Patient was seen by cardiology today for persistent tachycardia and peripheral edema. Patient has no other complaints today. Review of systems General: Patient denies fevers HEENT: Patient denies headaches Cardiovascular: Patient denies chest pain Respiratory: Patient denies shortness of breath, cough GI: Patient denies abdominal pain, nausea, vomiting, diarrhea : Patient denies pain or difficulty with urination Neurological: Patient denies numbness or tingling in extremities Extremities: Improved lower extremity swelling Objective: Vitals: (see below) General: No acute distress, laying comfortably in bed. HEENT: Normocephalic, atraumatic, moist mucous membranes. Neck: No JVD or lymphadenopathy Cardiac: RRR, No murmurs Pulm: Clear to auscultation b/l. No wheezing, rhonchi Abd: NT/ND + BS Ext: 12 + pitting edema in the bilateral lower extremities, improved from previous day Labs (see below) Images: No imaging has been performed today Assessment/Plan 1. Sepsis secondary to abscess of the left axilla that is draining. Surgery has been consulted said to apply a dressing to avoid drainage soiling clothing. Infectious disease has also been consulted and switched the patient to cefdinir 300 mg twice a day. Patient has been consistently tachycardic since admission and also had a lactic acid of 2.3 upon admission. This is since resolved however the patient is still tachycardic. 2. Hypoxia. Patient does not wear oxygen at home however, she has noticed dyspnea on exertion. Patient was seen by cardiology today. Cardiology does not believe this is congestive heart failure and this may be more due to the patient's lifestyle. Patient is morbidly obese, smoke cigarettes, and drinks alcohol. Patient was just recently diagnosed with diabetes however, the patient does not have a primary care physician. Cardiology suggested that unless the echocardiogram shows a cardiomyopathy, no further workup should be done. The biggest benefiting treatment would be weight loss. 3. Persistent sinus tachycardia. Cardiology believes this to be because of the patient's body habitus and other lifestyle. 4. Obesity complicating care. Patient is on obstructive sleep apnea protocol. I did have a discussion with her about weight loss today advising her that the biggest component of weight loss is eating less calories. 5. Diabetes. Patient is newly diagnosed and had not started outpatient treatment. Patient is currently on sliding scale insulin. 6. History of COPD. Patient is currently on albuterol via nebulizer. She is not wheezing at this time. DVT prophy: Heparin 5000 units subcutaneous every 8 hours Dispo: Pending clinical improvement VS,Fishbone, I+O VS, Fishbone, I+O Laboratory Tests 08/11/18 06:12 Red Blood Count 3.38 L, Mean Corpuscular Volume 91.1, Mean Corpuscular Hemoglobin 31.1, Mean Corpuscular Hemoglobin Concent 34.1, Red Cell Distribution Width 14.3, Calcium Level 7.6 L Vital Signs Date Time Temp Pulse Resp B/P (MAP) Pulse Ox O2 Delivery O2 Flow Rate FiO2 08/11/18 14:00 97.0 132 24 137/87 (104) 95 2.0 08/10/18 22:23 Nasal Cannula I&O- Last 24 Hours up to 6 AM 08/11/18 05:59 Intake Total 1440 ml Output Total 825 ml Balance 615 ml GME ATTESTATION GME ATTESTATION My faculty preceptor for this patient encounter was physically present during the encounter and was fully available. All aspects of the patient interview, examination, medical decision making process, and medical care plan development were reviewed and approved by the faculty preceptor. The faculty preceptor is aware and concurs with the plan as stated in the body of this note and will atte st to such by his/her cosignature. DAYAN KELLEY DO Aug 11, 2018 16:22
--- NOTE | 2018-08-11 20:48 | CR ---
DATE OF CONSULTATION: 08/10/2018 Asked to consult by hospitalist for evaluation of left axillary abscess. HISTORY OF PRESENT ILLNESS: Lissy is a 32-year-old smoker with a history of recurrent abscesses, usually in the axillary and groin area. The patient presented to the hospital with complaint of increasing pain, swelling, and drainage from the left axilla. The patient had noticed an abscess about a week prior to admission. The abscess was about 9.5 cm. In the emergency room, she was advised to be admitted on 08/04/2018, but had to leave against medical advice because she had to find child specialist for her three kids who are under 15. Her sister is taking care of the kids and she came back for admission. The patient states that she has had boils similar to those in her axilla, groin, and under her breasts that she usually takes care of on her own. She uses warm soaks and they spontaneously drain. She stated that this one did not resolve and therefore she had to come to the emergency room (ER). She denied any fever or chills, a cough or chest pain, but had shortness of breath especially with exertion. She had been hypoxic with increasing lower extremity edema in the hospital and therefore has not been able to be discharged. PAST MEDICAL HISTORY: Significant for chronic obstructive pulmonary disease (COPD). She continues to smoke about 1/2 a pack a day down from 2 1/2 packs a day in the past, recurrent axillary and groin abscesses, she was never given a diagnosis of hidradenitis suppurativa, obesity. PAST SURGICAL HISTORY: Tubal ligation. ALLERGIES: No known drug allergies. MEDICATIONS: - she was supposed to be on metformin - she takes albuterol Currently: - furosemide 20 mg IV daily - thiamine 100 mg by mouth daily - folic acid 1 mg daily - multivitamin one tablet daily - insulin sliding scale - Zofran 4 mg IV as needed - Tylenol as needed - morphine as needed LABORATORY DATA: White count has been normal throughout the admission, currently 8.4, hemoglobin 11.1, hematocrit 33.7, platelets 116, sodium 133, potassium 4.5, chloride 105, bicarbonate 23, BUN 10, creatinine 0.4, glucose 110, calcium 7.7, magnesium 1.7, CRP 1.36, ACTH 8.1, CPK 26, troponin less than 0.02. Vancomycin trough was 22.2 on 08/07/2018. Urinalysis had 28 white cells, 13 red cells. Cultures: Blood cultures, two sets, are negative and wound culture had Escherichia (E) coli on 08/05/2018, on 08/04/2018 had E. coli, Staphylococcus coagulase negative, and Streptococcus anginosus. PHYSICAL EXAMINATION: She is a pleasant, obese female in no acute distress. Temperature is 96.9, pulse 130, respirations 24, blood pressure 121/76, oxygen saturation 91% on 2 liters nasal cannula, maximum temperature (Tmax) throughout the admission was 100.3. Heart: Normal S1, S2, tachycardic. No murmurs appreciated. Lungs: Crackles at the bases, fine. Abdomen: Morbidly obese, soft, nontender. Extremities: +1 pitting edema bilaterally. Oropharynx: Clear with poor dentition, no thrush, no lesion. Neck is supple, no jugular venous distention (JVD), no bruits. Skin has multiple tattoos on the left breast, right wrist. She has multiple scars that are healed under her axilla, under her breasts, and the groin. She has a large lesion under her left axilla with two openings measuring about 4 cm each. The left upper quadrant has mild purulent discharge. The left central lesion has granulation tissue, it is tender to touch. IMPRESSION: This is a 32-year-old female, obese, with tobacco abuse with recurrent history of boils in her axillary, groin area, and under her breasts. She fits the typical presentation of hidradenitis suppurativa which is the cause of her recent axillary abscess. The patient has received appropriate antibiotics. Would suggest using cefdinir for outpatient therapy instead of cephalexin as the culture, the E. coli, that was cultured on 08/04/2018 was resistant to cephalexin. PLAN: As far as education is concerned, patient was given information regarding hidradenitis suppurativa. She needs to lose weight as obesity is definitely a triggering factor. She needs to stop smoking, would encourage using nicotine patch and avoid friction of the area, keep the area dry under her breasts and armpits. Patient needs a primary care provider at the residency clinic. I do not need to see the patient on a regular basis, this is easily treated by primary care and patient needs one provider to followup with. I would though consider a consultation as an outpatient with Dr. Batista who does help with treatment of hidradenitis, if she needs sweat gland excision that might be something that would be done by Dr. Batista from plastic surgery. Thank you for consultation. Continue cefdinir 300 mg by mouth twice a day for 1 week. MTDD
[2018-08-11 22:00] VITALS: BP 129/70
[2018-08-12] MEDS: HEPARIN SOD (PORCINE) 5000 UNITS/ML VIAL SC SCH ×3 (05:26→21:40)
[2018-08-12 06:00] VITALS: BP 130/71
--- NOTE | 2018-08-12 06:42 | ECHO ---
DATE OF PROCEDURE: 08/09/2018 REFERRING PHYSICIAN: Dr. Chelsea Mac. INDICATION: Localized edema. HEIGHT: 157 cm. WEIGHT: 100 kg. 2D MEASUREMENTS: Ventricular septum: 1.01 cm Posterior wall: 1.02 cm Left ventricle diastole: 4.5 cm Left atrium: 3.0 cm Aortic root: 3.3 cm Aortic annulus: 2.0 cm Inferior vena cava: 1.5 cm (more than 50% respiratory variation). DOPPLER MEASUREMENTS: Aortic valve velocity: 116 cm/s LVOT velocity: 104 cm/s LVOT VTI: 16.3 cm Pulmonary artery systolic pressure 43 mmHg. MITRAL ANNULAR TISSUE DOPPLER: E-prime septal: 9.9 cm/s E-prime lateral: 13.2 cm/s DESCRIPTION: Rhythm was sinus tachycardia. Image quality was fair. No pericardial effusion. This was a 2D, M-mode, color flow Doppler and pulsed wave Doppler examination and included mitral annular tissue Doppler. CONCLUSIONS: 1. Hyperdynamic LV systolic function. LVEF 75% by visual estimate. Normal left ventricle internal dimensions and wall thickness. No regional wall motion abnormalities of left ventricle. Normal LV diastolic function. 2. Small pericardial effusion (0.7 cm of the posterior wall of left ventricle). No diastolic chamber collapse. 3. Suggestive of moderate elevation of pulmonary artery systolic pressure (43 mmHg). 4. Normal central venous pressure. CVP estimated to be 5-10 mmHg. 5. Otherwise normal appearing echocardiogram Doppler findings.
[2018-08-12 07:36] LABS: HEMATOCRIT 30.6 % (36.0-47.0); HEMOGLOBIN 10.5 g/dl (12.0-15.5); MEAN CORPUSCULAR HEMOGLOBIN 31.9 pg (27.0-33.0); MEAN CORPUSCULAR HGB CONC 34.3 g/dl (32.0-36.5); PLATELET COUNT, AUTOMATED 228 10^3/uL (150-450); RED BLOOD COUNT 3.29 10^6/uL (4.00-5.40); WHITE BLOOD COUNT 7.7 10^3/uL (4.0-10.0)
[2018-08-12] MEDS: IPRATROPIUM 0.5MG/ALBUTEROL 2.5MG INH SOL UD 3ML (DUONEB)(J7620) NEB SCH ×3 (07:36→21:22)
[2018-08-12 07:39] LABS: BLOOD UREA NITROGEN 8 MG/DL (7-18); C REACTIVE PROTEIN QUANTITATIV 0.93 MG/DL (0.00-0.30); CALCIUM LEVEL 7.8 MG/DL (8.5-10.1); CARBON DIOXIDE LEVEL 28 MEQ/L (21-32); CHLORIDE LEVEL 103 MEQ/L (98-107); CREATININE FOR GFR 0.48 MG/DL (0.55-1.30); GLOMERULAR FILTRATION RATE > 60.0 (>60); GLUCOSE, FASTING 106 MG/DL (70-100); MAGNESIUM LEVEL 1.8 MG/DL (1.8-2.4); POTASSIUM SERUM 3.9 MEQ/L (3.5-5.1); SODIUM LEVEL 138 MEQ/L (136-145)
[2018-08-12] MEDS: CEFDINIR 300 MG CAP (OMNICEF) PO SCH ×2 (08:32→21:40)
[2018-08-12] MEDS: FUROSEMIDE 20 MG/2 ML VIAL (J1940) IV SCH (08:32)
[2018-08-12] MEDS: MULTIVITAMINS/MINERALS THERAP 1 TAB PO SCH (08:32)
[2018-08-12] MEDS: HumaLOG INSULIN (NovoLOG) PER UNIT SC SCH ×3 (08:33→17:53)
[2018-08-12] MEDS: FOLIC ACID 1 MG TAB PO SCH (08:33)
[2018-08-12] MEDS: THIAMINE 100 MG TAB PO SCH (08:34)
--- NOTE | 2018-08-12 10:50 | NOCOX ---
DATE OF SERVICE: 08/11/2018 Nocturnal oximetry was performed on room air. Resting oxygen saturation was 94%. Resting heart rate was 124. The patient had a heart rate ranging 52-145, oxygen saturation ranging 71% to 99%, oxygen saturation less than 88% was for 4 hours and 55 minutes. The longest continuous time with an oxygen saturation less than 88% was for 53 minutes. This was not artifact. The patient had significant variable desaturations that were prolonged. Did not appear to have any Sami-Hanna respirations. There was a heart rate variability associated with these desaturations. There were some disconnection from the probe. IMPRESSION: Significant variable hypoxia with heart rate variation. Recommend consideration of polysomnography if there is concern for underlying sleep apnea as an outpatient.
--- NOTE | 2018-08-12 10:54 | IPNPDOC ---
Text Note Date of Service The patient was seen on 08/12/18. NOTE Subjective: Patient is a 32-year-old female who presented to the hospital on 0 08/05/2017 with a left axillary abscess. This is been improving. Patient's sister is less pain and she does not need pain medication anymore at this time. Patient says her breathing has been better and she has not been wearing the oxygen and has not been having any issues. She says that her nurse was going to take her for walk without oxygen to measure her pulse oximetry. Patient says the swelling in her legs has decreased. Patient has seen cardiology and knows that she needs to make changes to her diet and lifestyle in order to help her with her chronic medical conditions. Patient otherwise feels well today. Patient has no difficulty with constipation or urinating. Review of systems General: Patient denies fevers HEENT: Patient denies headaches Cardiovascular: Patient denies chest pain Respiratory: Patient denies shortness of breath, cough GI: Patient denies abdominal pain, nausea, vomiting, diarrhea : Patient denies pain or difficulty with urination Neurological: Patient denies numbness or tingling in extremities Extremities: Swelling in the legs improving Objective: Vitals: (see below) General: No acute distress, laying comfortably in bed. HEENT: Normocephalic, atraumatic, moist mucous membranes. Neck: No JVD or lymphadenopathy Cardiac: RRR, No murmurs Pulm: Clear to auscultation b/l. No wheezing, rhonchi Abd: NT/ND + BS Ext: 1+ pitting bilaterally. Radial, posterior tibial, and dorsalis pedis pulses equal bilaterally. Labs (see below) Images: No images has been performed since 08/10/2018 Assessment/Plan 1. Sepsis secondary to abscess of the left axilla that is draining. Surgery has been consulted and said to apply a dressing to avoid drains with clothing. Infec tious disease has been consulted and the patient is now on cefdinir 300 mg twice a day. Infectious disease also advised the patient to see plastic surgery for hidradenitis management. Abscess appears better. The patient is no longer septic. 2. Hypoxia. Patient does not wear oxygen at home. She has been dyspneic on exertion. Patient's echo came back and she is not in congestive heart failure. She does have a small pericardial effusion. Cardiology thinks that her symptoms are more caused by the patient's lifestyle. I had a long discussion again with the patient today about diet. 3. Persistent sinus tachycardia. Cardiology believes this because the patient's body habitus and other lifestyle choices. 4. Obesity complicating care. According to the patient, last night she had a be woken up multiple times by nursing staff because she is having apneic events. Patient will need a outpatient sleep study. 5. Diabetes. Patient is newly diagnosed and has not started outpatient treatment. I did have another long conversation about diet for treatment of both obesity and diabetes. She is on sliding scale insulin. 6. History of COPD. Patient is currently on albuterol via nebulizer. There is no wheezing. DVT prophy: Heparin 5000 units subcutaneous every 8 hours Dispo: Pending clinical improvement VS,Lidiae, I+O VS, Fishbone, I+O Laboratory Tests 08/12/18 06:42 Red Blood Count 3.29 L, Mean Corpuscular Volume 93.0, Mean Corpuscular Hemoglobin 31.9, Mean Corpuscular Hemoglobin Concent 34.3, Red Cell Distribution Width 14.6 H, Calcium Level 7.8 L Vital Signs Date Time Temp Pulse Resp B/P (MAP) Pulse Ox O2 Delivery O2 Flow Rate FiO2 08/12/18 06:00 97.9 129 20 130/71 (90) 93 2.0 08/12/18 04:29 Room Air I&O- Last 24 Hours up to 6 AM 08/12/18 05:59 Intake Total 1660 ml Output Total 2175 ml Balance -515 ml GME ATTESTATION GME ATTESTATION My faculty preceptor for this patient encounter was physically present during the encounter and was fully available. All aspects of the patient interview, examination, medical decision making process, and medical care plan development were reviewed and approved by the faculty preceptor. The faculty preceptor is aware and concurs with the plan as stated in the body of this note and will attest to such by his/her cosignature. DAYAN KELLEY DO Aug 12, 2018 10:54
[2018-08-12 14:00] VITALS: BP 134/67
[2018-08-12 22:00] VITALS: BP 126/68
[2018-08-13] MEDS: IPRATROPIUM 0.5MG/ALBUTEROL 2.5MG INH SOL UD 3ML (DUONEB)(J7620) NEB SCH ×3 (01:06→14:00)
[2018-08-13 06:00] VITALS: BP 153/62
[2018-08-13 06:48] LABS: MAGNESIUM LEVEL 1.9 MG/DL (1.8-2.4)
[2018-08-13] MEDS: HEPARIN SOD (PORCINE) 5000 UNITS/ML VIAL SC SCH (07:18)
[2018-08-13] MEDS: FUROSEMIDE 20 MG/2 ML VIAL (J1940) IV SCH (07:18)
[2018-08-13] MEDS: MULTIVITAMINS/MINERALS THERAP 1 TAB PO SCH (07:19)
[2018-08-13] MEDS: THIAMINE 100 MG TAB PO SCH (07:19)
[2018-08-13] MEDS: FOLIC ACID 1 MG TAB PO SCH (07:19)
[2018-08-13] MEDS: HumaLOG INSULIN (NovoLOG) PER UNIT SC SCH ×2 (07:19→12:01)
[2018-08-13] MEDS: CEFDINIR 300 MG CAP (OMNICEF) PO SCH (07:23)
[2018-08-13 09:12] LABS: ALDOSTERONE 5.8 ng/dL (0.0-30.0)
[2018-08-13 09:13] LABS: BLOOD UREA NITROGEN 9 MG/DL (7-18); CARBON DIOXIDE LEVEL 27 MEQ/L (21-32); CHLORIDE LEVEL 104 MEQ/L (98-107); CREATININE FOR GFR 0.48 MG/DL (0.55-1.30); GLOMERULAR FILTRATION RATE > 60.0 (>60); GLUCOSE, FASTING 112 MG/DL (70-100); POTASSIUM SERUM 3.8 MEQ/L (3.5-5.1); SODIUM LEVEL 140 MEQ/L (136-145)
[2018-08-13 09:48] LABS: HEMATOCRIT 31.6 % (36.0-47.0); HEMOGLOBIN 10.7 g/dl (12.0-15.5); MEAN CORPUSCULAR HEMOGLOBIN 31.6 pg (27.0-33.0); MEAN CORPUSCULAR HGB CONC 33.9 g/dl (32.0-36.5); MEAN CORPUSCULAR VOLUME 93.2 fl (80.0-96.0); PLATELET COUNT, AUTOMATED 300 10^3/uL (150-450); RED BLOOD COUNT 3.39 10^6/uL (4.00-5.40); WHITE BLOOD COUNT 7.5 10^3/uL (4.0-10.0)
[2018-08-13] MEDS ORDERED: CEFD300CAP PO (11:46)
[2018-08-13] MEDS ORDERED: FURO20VL PO (11:46)
[2018-08-13] MEDS ORDERED: LASI20TA3 PO (13:08)
--- NOTE | 2018-08-13 14:13 | DS.PDOC ---
Discharge Summary General Date of Admission Aug 05, 2018 at 23:42 Date of Discharge 08/13/18 Attending Physician: MARISA REDD MD Specialist/Consultants Involve: RIKC JOSEPH DO Specialist/Consultants Involve Dr. Petersen, infectious disease; Dr. Schroeder, cardiology Discharge Summary PROCEDURES PERFORMED DURING STAY: None. ADMITTING/DISCHARGE DIAGNOSES: 1. Sepsis secondary to abscess of the left axilla 2. Hypoxia 3. Persistent sinus tachycardia 4. Obesity complicating care 5. Diabetes 6. History of COPD COMPLICATIONS/CHIEF COMPLAINT: Abscess of the left axilla HISTORY OF PRESENT ILLNESS/HOSPITAL COURSE: Patient is a 32-year-old female who presented to the hospital on 08/05/2018 with a chief complaint of an abscess of the left axilla. Patient was admitted to the hospital for care of this abscess. The abscess was draining spontaneously. Dr. Joseph of general surgery saw the patient early on and advised to continue letting the abscess drained. He advised to put a dressing on it in order to prevent any drainage from soiling the patient's clothing. Dr. Petersen was consulted and saw the patient and made recommendations for antibiotics. Throughout the patient's hospitalization, patient would have episodes of hypoxia that required supplemental oxygen therapy. On 08/10/2018 patient was found to have pretibial pitting edema and crackles in her lungs. Patient was started on IV Lasix at this time. An echocardiogram was ordered. Patient continued to have persistent sinus tachycardia and a cardiology consult was ordered. The echocardiogram showed hyperdynamic left ventricular systolic function and a small pericardial effusion. Dr. Schroeder saw the patient and said he believed that the patient's tachycardia and other issues were most likely due to the patient's lifestyle. The patient is obese, was recently diagnosed with diabetes, smokes cigarettes, and drinks alcohol. Patient did not have a primary care physician prior to h ospitalization. As more diuresis took place, the patient did improve. Patient did not require any supplements oxygen while awake on the last 2 days of her hospitalization. Patient had a nocturnal pulse oximetry study performed which did show significant variable hypoxia with heart rate variation. It is recommended a polysomnography be performed outpatient. Because of this, nocturnal oxygen was prescribed at 2 L/m until patient is able to get her outpatient sleep study. On 08/13/2018, patient was deemed safe for discharge. Patient was ambulated on room air and did not have any significant desaturations. Patient was discharged home. After the patient had left the hospital, we received a phone call from [facility], [place] stating that the patient's insurance would not cover home oxygen therapy because the patient nocturnal pulse oximetry says the patient may have sleep apnea. Home oxygen therapy will not be paid for unless the patient has an outpatient sleep study. DISCHARGE MEDICATIONS: Please see below. ALLERGIES: Please see below. PHYSICAL EXAMINATION ON DISCHARGE: Vitals: (see below) General: No acute distress, laying comfortably in bed. HEENT: Moist mucous membranes. Neck: No JVD or lymphadenopathy Cardiac: RRR, No murmurs Pulm: Clear to auscultation b/l. No wheezing, rhonchi Abd: NT/ND + BS Ext: 1+ pitting edema. No cyanosis LABORATORY DATA: Please see below. IMAGING: An extremity ultrasound performed on 07/28/2018 showed a complex area with small collection measuring 1.6 x 1.0 x 2.3 cm likely an abscess formation with surrounding edema. An abdominal ultrasound performed on 08/06/2017 showed hepatic steatosis and mild hepatomegaly without focal hepatic lesion A CT angiography of the chest performed on 08/10/[address] evidence of pulmonary embolism, foci of air with edema and inflammation of left axillary region similar to prior study of 08/06/2018 with no evidence of axillary abscess. There is a patchy infiltrate/atelectasis of the right lower lobe and s plenomegaly. PROGNOSIS: Fair ACTIVITY: As tolerated. DIET: Consistent carbohydrate DISCHARGE PLAN/DISPOSITION: Discharge to home DISCHARGE INSTRUCTIONS: 1. Establish and follow up with primary care physician within the next 5-7 days. 2. Have primary care physician refer to either pulmonology or neurology for outpatient sleep study. 3. Follow-up with cardiology within the next 1-2 weeks. 4. Follow-up with plastic surgery for treatment of hidradenitis. 5. Follow-up with infectious disease for abscess treatment. 6. Continue cefdinir twice a day 300 mg for the next 4 days. 7. Start Lasix 20 mg once a day. DISCHARGE CONDITION: Stable. TIME SPENT ON DISCHARGE: Greater than 30 minutes. Vital Signs/I&Os Vital Signs Date Time Temp Pulse Resp B/P (MAP) Pulse Ox O2 Delivery O2 Flow Rate FiO2 3/8/19 06:00 97.8 115 21 153/62 (92) 96 08/12/18 08:00 0.0 08/12/18 04:29 Room Air I&O- Last 24 Hours up to 6 AM 08/13/18 05:59 Intake Total 1770 ml Output Total 1425 ml Balance 345 ml Laboratory Data Labs 24H Laboratory Tests 2 08/12/18 16:37: Bedside Glucose (Misc Panel) 108H 08/13/18 06:07: Anion Gap 9, Glomerular Filtration Rate > 60.0, Blood Urea Nitrogen 9, Creatinine 0.48L, Sodium Level 140, Potassium Level 3.8, Chloride Level 104, Carbon Dioxide Level 27, Calcium Level 8.0L, Magnesium Level 1.9 08/13/18 08:42: Nucleated Red Blood Cells % (auto) 0.7H 08/13/18 11:25: Bedside Glucose (Misc Panel) 165H CBC/BMP Laboratory Tests 08/13/18 06:07 Calcium Level 8.0 L 08/13/18 08:42 Red Blood Count 3.39 L, Mean Corpuscular Volume 93.2, Mean Corpuscular Hemoglobin 31.6, Mean Corpuscular Hemoglobin Concent 33.9, Red Cell Distribution Width 14.7 H FSBS Laboratory Tests Test 08/12/18 16:37 08/13/18 11:25 Range/Units Bedside Glucose (Misc Panel) 108 165 70-105 MG/DL Microbiology Microbiology 08/05/18 Blood Culture - Final, Complete NO GROWTH AFTER 5 DAYS 08/05/18 Blood Culture - Final, Complete NO GROWTH AFTER 5 DAYS 08/05/18 Gram Stain - Final, Complete 08/05/18 Wound Culture - Final, Complete Escherichia Coli Anaerobic Cocci Discharge Medications Scheduled Cefdinir (Cefdinir) 300 Mg Cap, 300 MG PO BID Furosemide (Lasix) 20 Mg Tab, 1 TAB PO DAILY Metformin Hydrochloride (Metformin HCl) 500 Mg Tab, 500 MG PO BID, (Reported) Scheduled PRN Albuterol Sulfate (Ventolin Hfa) 108 Mcg/Act Aer, 2 PUFFS INH QID PRN for SHORTNESS OF BREATH, (Reported) Ibuprofen (Ibuprofen) 200 Mg Tab, 400 MG PO Q6H PRN for PAIN, (Reported) Allergies Coded Allergies: No Known Allergies (Verified Allergy, Unknown, 03/30/08) GME ATTESTATION GME ATTESTATION My faculty preceptor for this patient encounter was physically present during the encounter and was fully available. All aspects of the patient interview, examination, medical decision making process, and medical care plan development were reviewed and approved by the faculty preceptor. The faculty preceptor is aware and concurs with the plan as stated in the body of this note and will attest to such by his/her cosignature. DAYAN KELLEY DO Aug 13, 2018 14:13
== END 2018-08-13 14:12 | disposition home or self-care (01) | DRG 720 ==
LOC: M ED 18:32 → M ED INP 23:42 → M MSPAV 08-06 12:30
PROVIDERS: ADMIT Internal Medicine; ATTEND Internal Medicine
DX: A41.9 Sepsis, unspecified organism (principal); D69.6 Thrombocytopenia, unspecified; J44.1 Chronic obstructive pulmonary disease with (acute) exacerbation; Z68.41 Body mass index [BMI] 40.0-44.9, adult; E83.42 Hypomagnesemia; E87.6 Hypokalemia; E66.9 Obesity, unspecified; L73.2 Hidradenitis suppurativa; R09.02 Hypoxemia; E11.9 Type 2 diabetes mellitus without complications; L02.412 Cutaneous abscess of left axilla; R00.0 Tachycardia, unspecified; F17.210 Nicotine dependence, cigarettes, uncomplicated; B96.29 Other Escherichia coli [E. coli] as the cause of diseases classified elsewhere

== ENCOUNTER 2020-06-09 19:46 | Emergency (ER) | payer MEDICAID ==
[~2020-06-09] VITALS: Ht 157.5 cm; Wt 90.9 kg
[~2020-06-09 19:46] MED LIST changes: +CEFD300CAP PO; +FURO20VL PO; +IBUPOTC PO; +LASI20TA3 PO; +VENTAER INH
[2020-06-09] MEDS ORDERED: LIDOCAINE W/EPINEPHRINE 1% 20ML VIAL SC ONE (20:30)
[2020-06-09] MEDS ORDERED: CEPHALEXIN 500 MG CAP PO ONE (21:45)
[2020-06-09] MEDS ORDERED: KEFL500C17 PO (21:45)
[2020-06-09 23:32] VITALS: BP 143/95
== END 2020-06-09 23:34 | disposition home or self-care (01) ==
LOC: M ED 19:46
DX: R00.0 Tachycardia, unspecified (principal); S61.412A Laceration without foreign body of left hand, initial encounter; W26.8XXA Contact with other sharp object(s), not elsewhere classified, initial encounter; Y92.099 Unspecified place in other non-institutional residence as the place of occurrence of the external cause; Y93.9 Activity, unspecified; Y99.9 Unspecified external cause status; E11.9 Type 2 diabetes mellitus without complications; Z91.14 Patient's other noncompliance with medication regimen; F17.200 Nicotine dependence, unspecified, uncomplicated

== ENCOUNTER → 2023-09-24 | Outpatient (REF) | payer OTHER ==
[~2023-09-24] MED LIST changes: +KEFL500C17 PO
[2023-09-24 14:06] LABS: HEMOGLOBIN A1c 7.2 % (4.0-6.0)
[2023-09-24 14:40] LABS: ALBUMIN 3.3 G/DL (3.2-5.2); ALKALINE PHOSPHATASE 73 U/L (46-116); ALT/SGPT 40 U/L (7.0-40); AST/SGOT 33 U/L (<34); BILIRUBIN,TOTAL 0.4 MG/DL (0.3-1.2); BLOOD UREA NITROGEN 6 MG/DL (9-23); CALCIUM LEVEL 9.4 MG/DL (8.5-10.1); CARBON DIOXIDE LEVEL 26 MMOL/L (20-31); CHLORIDE LEVEL 101 MMOL/L (98-107); CHOLESTEROL LEVEL 171 MG/DL (<200); CHOLESTEROL RISK RATIO 4.26 (<5); CREATININE FOR GFR 0.49 MG/DL (0.55-1.30); GLOMERULAR FILTRATION RATE > 60.0 (>60); GLUCOSE, FASTING 170 MG/DL (60-100); HDL CHOLESTEROL 40.1 MG/DL (>40); LDL CHOLESTEROL 99.5 MG/DL (<100); NON-HDL-C 130.9 MG/DL; POTASSIUM SERUM 5.1 MMOL/L (3.5-5.1); SODIUM LEVEL 132 MMOL/L (136-145); THYROID STIMULATING HORMONE 2.351 uIU/ML (0.55-4.78); TOTAL 25(OH) VITAMIN D 20.4 NG/ML (20.0-100.0); TOTAL PROTEIN 7.4 G/DL (5.7-8.2); TRIGLYCERIDES LEVEL 157 MG/DL (<150)
[2023-09-24 14:54] LABS: HIV 1&2 SCREEN NEGATIVE (NEGATIVE)
[2023-09-24 15:01] LABS: HEPATITIS C VIRUS ABY INDEX < 0.02 INDEX (<0.8)
== END ==
LOC: M LAB REF 12:49
PROVIDERS: ATTEND Physician Assistant
DX: Z11.9 Encounter for screening for infectious and parasitic diseases, unspecified (principal); E66.9 Obesity, unspecified; E55.9 Vitamin D deficiency, unspecified

== ENCOUNTER → 2024-04-13 | Outpatient (REF) | payer OTHER | LOC: M LAB REF 12:36 | PROVIDERS: ATTEND Physician Assistant | DX: L02.411 Cutaneous abscess of right axilla (principal) ==

== ENCOUNTER → 2024-04-20 | Outpatient (REF) | payer OTHER ==
[2024-04-20 13:53] LABS: CREATININE, URINE 127.9 MG/DL; MAU/CREAT RATIO 4.6 MCG/MG (0.0-30.0)
[2024-04-20 14:39] LABS: Trichomonas vaginalis (AMP) POSITIVE (NEGATIVE)
[2024-04-20 15:09] LABS: GC DNA AMPLIFICATION NEGATIVE (NEGATIVE)
== END ==
LOC: M LAB REF 12:34
PROVIDERS: ATTEND Physician Assistant
DX: E11.9 Type 2 diabetes mellitus without complications (principal); Z11.3 Encounter for screening for infections with a predominantly sexual mode of transmission

== ENCOUNTER → 2024-06-30 | Outpatient (REF) | payer OTHER ==
[2024-06-30 14:54] LABS: BASO % 0.4 % (0.0-1.0); EOS % 0.4 % (0.0-3.0); HEMATOCRIT 47.4 % (36.0-47.0); HEMOGLOBIN 15.9 g/dl (12.0-15.5); LYMPH # 1.7 10^3/uL (1.5-5.0); LYMPH % 21.3 % (24.0-44.0); MEAN CORPUSCULAR HEMOGLOBIN 29.8 pg (27.0-33.0); MEAN CORPUSCULAR HGB CONC 33.5 g/dl (32.0-36.5); MEAN CORPUSCULAR VOLUME 88.9 fl (80.0-96.0); MONO # 0.5 10^3/uL (0.0-0.8); NEUTROPHILS # 5.6 10^3/uL (1.5-8.5); NEUTROPHILS % 70.4 % (36.0-66.0); PLATELET COUNT, AUTOMATED 463 10^3/uL (150-450); RED BLOOD COUNT 5.33 10^6/uL (4.00-5.40)
[2024-06-30 15:01] LABS: ERYTHROCYTE SEDIMENTATION RATE 105 mm/hr (0-20)
== END ==
LOC: M LAB REF 13:29
PROVIDERS: ATTEND Physician Assistant
DX: R06.00 Dyspnea, unspecified (principal)